=== PATIENT | female | born 1955 | race Caucasian/White ===

== ENCOUNTER 2016-09-07 18:35 | Observation (INO) | payer BC ==
[~2016-09-07] VITALS: Ht 165.1 cm; Wt 65.4 kg
[2016-09-07] VITALS (8 sets, daily range): BP systolic 70–102; BP diastolic 43–51; PULSE 75–90; RESP 17–20; TEMP 97.9–98.6; O2SAT 95–98
[~2016-09-07 18:35] MED LIST: DOXY100T PO; LORA10TA7 PO; LOTR15T TOP; PRED20 PO; RANI150 PO; SULF1TAB47 PO
[2016-09-07] MEDS ORDERED: SODIUM CHLORIDE 0.9% FLUSH 5 ML FLUSH IVF PRN (19:00)
[2016-09-07] MEDS ORDERED: SODIUM CHLOR 0.9% 1000 ML INJ 1,000 ML IV SCH (19:00)
--- NOTE | 2016-09-07 19:22 | PD ---
HPI Chief Complaint: Cold / Flu Symptoms Time Seen by Provider: 18:47 Travel History International Travel<30 days: No Contact w/Intl Traveler<30days: No Traveled to known affect area: No History of Present Illness HPI Patient's 7-year-old female presents emergency department for evaluation of nausea body aches and fever for the past 5 days. Patient states she went to an urgent care clinic and was told that she had the flu. She was prescribed Zofran. No further testing was indicated that time. Patient was notably hypotensive not in triage was placed in emergency department. She denied any dizziness or feeling like she was going to pass out. States the fevers but as high as 104. She denies any abdominal pain chest pain. She does endorse a dry cough which has not been productive any sputum. States the symptoms are not happened to her in the past. Denies history of medical problems. States symptoms him and gradually worsening. PFSH Past Medical History Diminished Hearing: No ?: Not Menopausal: Yes Past Surgical History Other Surgery: Yes (LEFT BREAST CYST REMOVED) Social History Alcohol Use: No Tobacco Use: No Substance Use: No Allergies-Medications (Allergen,Severity, Reaction): Coded Allergies: No Known Allergies (Verified , 09/07/16) Reported Meds & Prescriptions Reported Meds & Active Scripts Active Review of Systems Except as stated in HPI: all other systems reviewed are Neg Physical Exam Narrative GENERAL: [Well-developed well-nourished in no obvious distress. SKIN: Warm and dry. Decreased skin turgor HEAD: Atraumatic. Normocephalic. EYES: Pupils equal and round. No scleral icterus. No injection or drainage. ENT: No nasal bleeding or discharge. Mucous membranes pink and dry NECK: Trachea midline. No JVD. CARDIOVASCULAR: Regular rate and rhythm. No murmur appreciated. RESPIRATORY: No accessory muscle use. Clear to auscultation. Breath sounds equal bilaterally. GASTROINTESTINAL: Abdomen soft, non-tender, nondistended. Hepatic and splenic margins not palpable. MUSCULOSKELETAL: No obvious deformities. No clubbing. No cyanosis. No edema. NEUROLOGICAL: Awake and alert. No obvious cranial nerve deficits. Motor grossly within normal limits. Normal speech. PSYCHIATRIC: Appropriate mood and affect; insight and judgment normal. Data Data Last Documented VS Vital Signs Date Time Temp Pulse Resp B/P Pulse Ox O2 Delivery O2 Flow Rate FiO2 09/07/16 22:40 18 98 Room Air 09/07/16 21:50 78 81/50 09/07/16 19:02 97.9 Orders Complete Blood Count With Diff (09/07/16 19:00) Comprehensive Metabolic Panel (09/07/16 19:00) Lipase (09/07/16 19:00) Lactic Acid (09/07/16 19:00) Urinalysis - C+S If Indicated (09/07/16 19:00) Iv Access Insert/Monitor (09/07/16 19:00) Ecg Monitoring (09/07/16 19:00) Oximetry (09/07/16 19:00) Sodium Chlor 0.9% 1000 Ml Inj (Ns 1000 M (09/07/16 19:00) Sodium Chloride 0.9% Flush (Ns Flush) (09/07/16 19:00) Electrocardiogram (09/07/16 19:00) Chest, Single Ap (09/07/16 ) Influenzae A/B Antigen (09/07/16 19:00) Sodium Chlor 0.9% 1000 Ml Inj (Ns 1000 M (09/07/16 20:00) Cath For Specimen (09/07/16 20:27) B-Type Natriuretic Peptide (09/07/16 20:28) Sodium Chlor 0.9% 1000 Ml Inj (Ns 1000 M (09/07/16 21:00) Troponin I (09/07/16 19:15) Ct Abd/Pel W Iv Contrast(Rout) (09/07/16 ) Potassium Chlor 20 Meq Premix (Kcl 20 Me (09/07/16 21:15) Urine Culture (09/07/16 20:56) Ampicillin-Sulbactam Inj (Unasyn Inj) (09/07/16 23:00) Blood Culture (09/07/16 22:53) Iohexol 350 Inj (Omnipaque 350 Inj) (09/07/16 23:04) Admit Order (Ed Use Only) (09/07/16 ) Labs Laboratory Tests Test 09/07/16 09/07/16 19:15 20:56 White Blood Count 10.6 TH/MM3 Red Blood Count 4.20 MIL/MM3 Hemoglobin 12.6 GM/DL Hematocrit 36.0 % Mean Corpuscular Volume 85.9 FL Mean Corpuscular Hemoglobin 29.9 PG Mean Corpuscular Hemoglobin 34.9 % Concent Red Cell Distribution Width 13.0 % Platelet Count 98 TH/MM3 Mean Platelet Volume 9.4 FL Neutrophils (%) (Auto) 85.3 % Lymphocytes (%) (Auto) 8.1 % Monocytes (%) (Auto) 5.4 % Eosinophils (%) (Auto) 0.6 % Basophils (%) (Auto) 0.6 % Neutrophils # (Auto) 8.9 TH/MM3 Lymphocytes # (Auto) 0.9 TH/MM3 Monocytes # (Auto) 0.6 TH/MM3 Eosinophils # (Auto) 0.1 TH/MM3 Basophils # (Auto) 0.1 TH/MM3 CBC Comment AUTO DIFF Differential Comment AUTO DIFF CONFIRMED Platelet Estimate LOW Platelet Morphology Comment NORMAL Sodium Level 136 MEQ/L Potassium Level 2.9 MEQ/L Chloride Level 100 MEQ/L Carbon Dioxide Level 24.5 MEQ/L Anion Gap 12 MEQ/L Blood Urea Nitrogen 24 MG/DL Creatinine 1.00 MG/DL Estimat Glomerular Filtration 57 ML/MIN Rate Random Glucose 116 MG/DL Lactic Acid Level 1.0 mmol/L Calcium Level 8.6 MG/DL Total Bilirubin 2.0 MG/DL Aspartate Amino Transf 38 U/L (AST/SGOT) Alanine Aminotransferase 92 U/L (ALT/SGPT) Alkaline Phosphatase 416 U/L Troponin I LESS THAN 0.02 NG/ML B-Type Natriuretic Peptide 116 PG/ML Total Protein 6.0 GM/DL Albumin 2.2 GM/DL Lipase 79 U/L Urine Collection Type CATH Urine Color YELLOW Urine Turbidity CLEAR Urine pH 6.0 Urine Specific [place] 1.010 Urine Protein TRACE mg/dL Urine Glucose (UA) NEG mg/dL Urine Ketones NEG mg/dL Urine Occult Blood LARGE Urine Nitrite NEG Urine Bilirubin SMALL Urine Leukocyte Esterase TRACE Urine RBC 10-14 /hpf Urine WBC 9-14 /hpf Urine WBC Clumps FEW Urine Squamous Epithelial 0-2 /hpf Cells Urine Amorphous Sediment Urine Bacteria FEW /hpf Urine Fine Granular Casts 0-2 /lpf Microscopic Urinalysis Comment CULTURE INDICATED MDM Medical Decision Making Medical Screen Exam Complete: Yes Emergency Medical Condition: Yes Interpretation(s) EKG shows normal sinus rhythm with normal axis and normal R-wave progression. No concerning ST-T changes. Intervals within normal limits. This normal EKG. Differential Diagnosis Influenza, hypotension, dehydration, urinary tract infection, pneumonia, electrolyte abnormality. Narrative Course Patient 61-year-old female presents mildly hypotensive with blood pressure in the 70 systolic range. She is tolerating this quite well is mentating appropriately and actually ambulated with his blood pressure. Her urine specimen was quite dark on arrival suggesting significant dehydration. She had decreased skin turgor as well as dry mucous membranes. She is given a total of 3 L normal saline by bolus. At her blood pressure increased to 95 systolic. Her lactic acid is 1. She does not meet any SIRS criteria. She does have a significant urinary tract infection was given Unasyn in the emergency department. Blood cultures were drawn. After fluid hydration patient remained stable in the emergency department. Her potassium was low and was being repleted. Kidney function is normal. The patient is starting to feel much better. Patient was discussed with Parth Balderas of the [facility] to for admission to . At this point she is stable to remain in [place] in [facility]. Diagnosis Primary Impression: Complicated urinary tract infection Additional Impressions: Severe dehydration Transient hypotension Admitting Information Admitting Physician Requests: Admit Condition: Stable Roc Deluca MD Sep 07, 2016 19:22
[2016-09-07 19:38] LABS: AUTOMATED NEUTROPHIL # 8.9 TH/MM3 (1.8-7.7); BASOPHIL # 0.1 TH/MM3 (0-0.2); BASOPHIL % 0.6 % (0.0-2.0); EOSINOPHIL # 0.1 TH/MM3 (0-0.4); EOSINOPHIL % 0.6 % (0.0-4.0); LYMPH % 8.1 % (9.0-44.0); LYMPHOCYTE # 0.9 TH/MM3 (1.0-4.8); MEAN CELL VOLUME 85.9 FL (80.0-100.0); MEAN CORPUSCULAR HEMOGLOBIN 29.9 PG (27.0-34.0); MEAN CORPUSCULAR HGB CONC 34.9 % (32.0-36.0); MONO % 5.4 % (0.0-8.0); NEUT % 85.3 % (16.0-70.0); PLATELET COUNT 98 TH/MM3 (150-450); WHITE BLOOD COUNT 10.6 TH/MM3 (4.0-11.0)
[2016-09-07] MEDS ORDERED: SODIUM CHLOR 0.9% 1000 ML INJ 1,000 ML IV ONE ×2 (20:00→21:00)
--- NOTE | 2016-09-07 20:03 | RADHPO ---
EXAM DATE/TIME: 09/07/2016 19:54 [facility] COMPARISON: No previous studies available for comparison. INDICATIONS : Fever, MEDICAL HISTORY : None. SURGICAL HISTORY : None. ENCOUNTER: Initial ACUITY: 2 days PAIN SCORE: 5/10 LOCATION: Bilateral upper chest FINDINGS: A single view of the chest demonstrates the lungs to be symmetrically aerated without evidence of mas s, infiltrate or effusion. There appears to be chronic as changes bilaterally. The heart size is mil dly enlarged.. Osseous structures are intact. CONCLUSION: 1. Chronic interstitial changes bilaterally. 2. No focal pulmonary infiltrates are demonstrated. 3. Mild compensated cardiomegaly. Christopher Luna MD on September 07, 2016 at 20:01 Board Certified Radiologist. This report was verified electronically.
[2016-09-07 20:07] LABS: HEMO FLAGS AUTO DIFF
[2016-09-07 20:36] LABS: PLATELET ESTIMATE SMEAR LOW (NORMAL); PLATELET MORPHOLOGY NORMAL (NORMAL); SCAN/DIFF AUTO DIFF CONFIRMED
[2016-09-07 20:58] LABS: ALKALINE PHOSPHATASE 416 U/L (45-117); ALT (GPT) 92 U/L (10-53); ANION GAP 12 MEQ/L (5-15); AST (GOT) 38 U/L (15-37); BICARBONATE 24.5 MEQ/L (21.0-32.0); BLOOD UREA NITROGEN 24 MG/DL (7-18); CHLORIDE 100 MEQ/L (98-107); GLOMERULAR FILTRATION RATE 57 ML/MIN (>89); SODIUM (NA) 136 MEQ/L (136-145)
[2016-09-07 21:00] LABS: POTASSIUM 2.9 MEQ/L (3.5-5.1)
[2016-09-07 21:15] LABS: BLOOD, URINE LARGE (NEG); GLUCOSE,URINE NEG (NEG); KETONE, URINE NEG (NEG); NITRITE,URINE NEG (NEG)
[2016-09-07] MEDS ORDERED: POTASSIUM CHLOR 20 MEQ PREMIX 100 ML IV ONE (21:15)
[2016-09-07 21:24] LABS: METHOD OF COLLECTION CATH; URINE COLOR YELLOW (YELLW/STRAW)
[2016-09-07 21:27] LABS: BACTERIA, URINE FEW /hpf; COMMENT (UR) CULTURE INDICATED; CULTURE IF INDICATED CULTURE INDICATED; SQUAMOUS EPITHELIAL CELL URINE 0-2 /hpf (0-5)
--- NOTE | 2016-09-07 21:46 | RADHPO ---
EXAM DATE/TIME: 09/07/2016 21:17 [facility] COMPARISON: No previous studies available for comparison. INDICATIONS : Abdoemn pain, vomiting. IV CONTRAST: 75 cc Omnipaque 350 (iohexol) IV ORAL CONTRAST: No oral contrast ingested. RADIATION DOSE: 6.39 CTDIvol (mGy) MEDICAL HISTORY : Asthma SURGICAL HISTORY : None. ENCOUNTER: Initial ACUITY: 1 day PAIN SCALE: 5/10 LOCATION: Abdomen TECHNIQUE: Volumetric scanning of the abdomen and pelvis was performed. Using automated exposure control and ad justment of the mA and/or kV according to patient size, radiation dose was kept as low as reasonably achievable to obtain optimal diagnostic quality images. FINDINGS: LOWER LUNGS: Bibasilar atelectasis. LIVER: Homogeneous density without lesion. There is no dilation of the biliary tree. No calcified gallston es. SPLEEN: Normal size without lesion. PANCREAS: Within normal limits. KIDNEYS: Normal in size and shape. There is no mass, stone or hydronephrosis. There is a 1.5 cm cyst upper po le right kidney. ADRENAL GLANDS: Within normal limits. VASCULAR: There is no aortic aneurysm. BOWEL/MESENTERY: The stomach, small bowel, and colon demonstrate no acute abnormality. There is no free intraperitone al air or fluid. The appendix is unremarkable. No inflammatory changes. There is stool throughout the colon. ABDOMINAL WALL: Within normal limits. RETROPERITONEUM: There is no lymphadenopathy. BLADDER: No wall thickening or mass. REPRODUCTIVE: Within normal limits. INGUINAL: There is no lymphadenopathy or hernia. MUSCULOSKELETAL: Within normal limits for patient age. CONCLUSION: 1. 1.5 cm right renal cyst. 2. Bibasilar atelectasis. 3. Otherwise, unremarkable exam. Christopher Luna MD on September 07, 2016 at 21:42 Board Certified Radiologist. This report was verified electronically.
[2016-09-07] MEDS ORDERED: AMPICILLIN-SULBACTAM INJ 3 GM in SODIUM CHLORIDE 0.9% INJ 100 ML IV ONE (23:00)
[2016-09-07] MEDS ORDERED: IOHEXOL 350 MG/ML 10 ML VIAL (for RAD DIAG) IV ONE (23:04)
[2016-09-07] MEDS ORDERED: ACETAMINOPHEN 325 MG TAB PO ONE (23:45)
[2016-09-08] VITALS (58 sets, daily range): BP systolic 69–95; BP diastolic 44–59; PULSE 71–102; RESP 12–30; TEMP 98–99.6; O2SAT 92–100
[2016-09-08] MEDS ORDERED: POTASSIUM CHLORIDE INJ 0.02 MEQ in SODIUM CHLOR 0.9% 1000 ML INJ 1 ML IV SCH (00:06)
[2016-09-08] MEDS ORDERED: BISACODYL 10 MG SUPP PR PRN (00:15)
[2016-09-08] MEDS ORDERED: ACETAMINOPHEN 325 MG TAB PO PRN (00:15)
[2016-09-08] MEDS ORDERED: SODIUM CHLORIDE 0.9% FLUSH 5 ML FLUSH FLUSH PRN (00:15)
[2016-09-08] MEDS ORDERED: SENNOSIDES 8.6 MG TAB PO PRN (00:15)
[2016-09-08] MEDS ORDERED: ONDANSETRON HCL 4 MG/2 ML VIAL IVP PRN (00:15)
[2016-09-08] MEDS ORDERED: NALOXONE HCL 0.4 MG/ML AMP IV PRN (00:15)
[2016-09-08] MEDS ORDERED: NS + KCL 20 MEQ INJ 1,000 ML IV SCH (01:00)
[2016-09-08] MEDS ORDERED: MISCELLANEOUS NURSING INFORMATION XX SCH (01:45)
[2016-09-08] MEDS ORDERED: CHLORHEXIDINE GLUCONATE 2 % 1 PACK (2 CLOTHS) TOP PRN (01:45)
[2016-09-08] MEDS ORDERED: ONDANSETRON HCL 4 MG/2 ML VIAL IV PRN (01:45)
[2016-09-08] MEDS ORDERED: RESP: ALBUTEROL 2.5 MG/3 ML NEB (PRN) INH (01:45)
[2016-09-08] MEDS ORDERED: HEPARIN SODIUM - SQ 10,000 UNITS/ML VIAL SQ SCH (02:00)
[2016-09-08 02:48] LABS: BICARBONATE 21.2 MEQ/L (21.0-32.0); MAGNESIUM 2.1 MG/DL (1.5-2.5); POTASSIUM 3.1 MEQ/L (3.5-5.1)
[2016-09-08] MEDS: NS + KCL 20 MEQ INJ 1,000 ML IV SCH ×3 (02:53→21:53)
[2016-09-08] MEDS ORDERED: ENOXAPARIN SODIUM 40 MG/0.4 ML SYRINGE SQ SCH (03:00)
[2016-09-08 03:07] LABS: CREATINE KINASE 16 U/L (26-192)
[2016-09-08] MEDS: CHLORHEXIDINE GLUCONATE 2 % 1 PACK (2 CLOTHS) TOP SCH (04:00)
[2016-09-08] MEDS: RESP: ALBUTEROL 2.5 MG/IPRATROPIUM 0.5 MG NEB (SCH) INH ×4 (04:23→21:33)
[2016-09-08] MEDS ORDERED: POTASSIUM CHLOR 20 MEQ PREMIX 100 ML IV PRN (06:45)
[2016-09-08] MEDS ORDERED: MAGNESIUM OXIDE 400 MG TAB PO PRN (06:45)
[2016-09-08] MEDS ORDERED: MAGNESIUM SULFATE INJ 4 GM in SODIUM CHLORIDE 0.9% INJ 92 ML IV PRN (06:45)
[2016-09-08] MEDS ORDERED: POTASSIUM PHOSPHATE MONOBASIC 500 MG TAB PO/TUBE PRN (06:45)
[2016-09-08] MEDS ORDERED: POTASSIUM CHLOR 40 MEQ PREMIX 100 ML IV PRN ×2 (06:45)
[2016-09-08] MEDS ORDERED: MAGNESIUM SULFATE INJ 2 GM in SODIUM CHLORIDE 0.9% INJ 96 ML IV PRN (06:45)
[2016-09-08] MEDS ORDERED: POTASSIUM PHOSPHATE MONOBASIC 500 MG TAB PO PRN (06:45)
[2016-09-08] MEDS ORDERED: POTASSIUM PHOSPHATE INJ 30 MMOL in SODIUM CHLOR 0.9% 250 ML INJ 250 ML IV PRN (06:45)
[2016-09-08] MEDS ORDERED: SODIUM PHOSPHATE INJ 30 MMOL in SODIUM CHLOR 0.9% 250 ML INJ 240 ML IV PRN (06:45)
[2016-09-08] MEDS ORDERED: SODIUM CHLOR 0.9% 1000 ML INJ 1,000 ML IV ONE ×3 (06:45→15:00)
[2016-09-08] MEDS: PIPERACIL-TAZO 3.375 GM PREMIX 50 ML IV SCH ×3 (07:11→18:44)
[2016-09-08 07:40] LABS: AUTOMATED NEUTROPHIL # 8.2 TH/MM3 (1.8-7.7); BASOPHIL % 0.4 % (0.0-2.0); EOSINOPHIL % 0.3 % (0.0-4.0); HEMATOCRIT 32.3 % (35.0-46.0); HEMO FLAGS AUTO DIFF; LYMPH % 10.7 % (9.0-44.0); LYMPHOCYTE # 1.1 TH/MM3 (1.0-4.8); MEAN CELL VOLUME 88.3 FL (80.0-100.0); MEAN CORPUSCULAR HEMOGLOBIN 29.4 PG (27.0-34.0); MEAN CORPUSCULAR HGB CONC 33.3 % (32.0-36.0); MONO % 6.2 % (0.0-8.0); NEUT % 82.4 % (16.0-70.0); PLATELET COUNT 90 TH/MM3 (150-450); RED BLOOD COUNT 3.66 MIL/MM3 (4.00-5.30); WHITE BLOOD COUNT 9.9 TH/MM3 (4.0-11.0)
[2016-09-08 07:42] LABS: PROTHROMBIN TIME - PATIENT 11.2 SEC (9.8-11.6)
[2016-09-08 07:54] LABS: CREATINE KINASE 14 U/L (26-192)
[2016-09-08 07:58] LABS: PLATELET ESTIMATE SMEAR LOW (NORMAL); PLATELET MORPHOLOGY NORMAL (NORMAL); SCAN/DIFF AUTO DIFF CONFIRMED
--- NOTE | 2016-09-08 08:39 | MH ---
cc: CHARLEY ARMENDARIZ M.D. DATE OF ADMISSION 09/08/2016 DATE OF 1955 HISTORY OF PRESENT ILLNESS The patient is a 61-year-old female without significant past medical history who presented to [place] ED with a history of generalized body aches, fevers and dry cough. In addition, the patient had intractable nausea and vomiting and decreased p.o. intake for the past several days. She went to a walk-in clinic on Wednesday where she received a cough and nausea medications. She denies any chest pain, shortness of breath, abdominal pain. She was told that she had the flu at the urgent care clinic, however, she did not receive any Tamiflu and her nasal aspirate for influenza is negative in the ED. On arrival to the ER, the patient was hypotensive with a systolic blood pressure in the 70s to 80s. She is afebrile with a WBC of 10.6 on arrival. Chest x-ray on admission showed chronic interstitial changes bilaterally. No evidence of any focal pulmonary infiltrates. Her lactic acid measured at 1.0 last night and 0.3 early this morning. LABORATORY DATA Her laboratory data was significant for hypokalemia and hypophosphatemia with a potassium level of 3.1 and phosphorus 0.9 respectively. The patient also had CT abdomen and pelvis which showed a 1.5 cm right renal cyst and bibasilar atelectasis. She received approximately 4 liters of IV fluids in the ER. The patient is lying comfortably in bed in no acute respiratory distress. Her last blood pressure is 81/55 with a MAP of 64. PAST MEDICAL HISTORY The patient denies any history of: 1. Hypertension 2. Diabetes mellitus 3. Hyperlipidemia 4. Coronary artery disease PAST SURGICAL HISTORY Previous lump removed as a teenager. ALLERGIES NO KNOWN DRUG ALLERGIES. SOCIAL HISTORY Nonsmoker, nondrinker. FAMILY HISTORY Uncle with [place]. MEDICATIONS AT HOME Advil p.r.n. REVIEW OF SYSTEMS As per HPI, otherwise review of systems are unremarkable. PHYSICAL EXAM A 61-year-old female lying in bed in no acute distress. VITAL SIGNS: Afebrile with temperature of 98.1, pulse of 97, blood pressure 81/55, MAP of 64, saturation 100%. HEENT: Atraumatic, normocephalic. Pupil equal, round and active to light and accommodation. Extraocular muscles intact. Conjunctivae pink. Nonicteric sclera. Oral mucosa within normal. Dry mucous membranes noted. NECK: Supple. No JVD, adenopathy or thyromegaly. Trachea midline. CARDIOVASCULAR: Regular rate and rhythm. Normal S1-S2. No murmurs, rubs or gallops noted. PULMONARY: Bilateral equal air entry. No crackles or wheezing. ABDOMEN: Soft, nontender, no distension. Positive bowel sounds. EXTREMITIES: No cyanosis, clubbing or edema. NEUROLOGIC: No focal sensory deficit. LABORATORY DATA Sodium 142, potassium 3.1, chloride 109, CO2 21, BUN of 17 creatinine 0.71, glucose of 107, lactic acid 0.3, phosphorous 0.9, calcium 7.5, troponin less than 0.02, BNP 116, random cortisol level 26. WBC 10.6, hemoglobin 12.6, hematocrit 36, platelet count 98. RADIOGRAPHIC STUDIES Chest x-ray showed chronic interstitial changes bilaterally. No focal pulmonary infiltrates. CT abdomen and pelvis showed a 1.5 cm right renal cyst and bibasilar atelectasis. IMPRESSION 1. Hypotension 2. Dehydration 3. Intractable nausea and vomiting 4. Urinary tract infection 5. Hypokalemia and hypophosphatemia 6. Thrombocytopenia RECOMMENDATIONS 1. Continue with oxygen and maintain sats above 92%. 2. Bronchodilators in the form of DuoNeb q6-hour 3. Monitor heart rate and blood pressure closely and maintain MAP greater than 65 mmHg. 4. Lactic acid level measured at 0.3. 5. Continue with IV hydration. She was given approximately four liters of IV fluids in the ER. We will give an additional normal saline one liter bolus and maintain on maintenance fluids NS plus 20 of KCl at 100 mL an hour. 6. Monitor renal function I's and O's and electrolyte replacement per protocol. 7. Start clear liquid diet and advance as tolerated. 8. Continue with Protonix or continue with Pepcid 10 mg b.i.d. 9. Continue with Zosyn for a UTI and monitor for signs of infections which include fever and WBC. 10. Follow up on blood and urine cultures. 11. Her nasal aspirate for influenza is negative. 12. Monitor CBC and check coagulation profile. 13. Sliding scale insulin if needed for glycemic control. 14. GI and DVT prophylaxis. The patient is on Pepcid and Lovenox 40 mg subcu daily respectively. 15. Further recommendations will be based on the hospital course. Level 4, thank you. MD TAE Small/GEENA /6:37 AM /8:18 AM
[2016-09-08] MEDS: FAMOTIDINE 20 MG TAB PO SCH ×2 (09:00→20:56)
[2016-09-08] MEDS: PANTOPRAZOLE SODIUM 40 MG VIAL IV SCH (09:22)
[2016-09-08] MEDS: SODIUM CHLORIDE 0.9% FLUSH 5 ML FLUSH FLUSH SCH ×2 (09:23→23:27)
--- NOTE | 2016-09-08 10:09 | EKG ---
Date Performed: 09/07/2016 Time Performed: 19:15:34 PTAGE: 61 years EKG: Sinus rhythm Possible left atrial abnormality Incomplete RBBB Borderline ECG NO PREVIOUS TRACING DOCTOR: William Pena Interpretating Date/Time 09/08/2016 10:06:49
--- NOTE | 2016-09-08 10:18 | RADHPO ---
EXAM DATE/TIME: 09/08/2016 08:18 [facility] COMPARISON: No previous studies available for comparison. INDICATIONS: Increased lab values. MEDICAL HISTORY: Gastroesophageal reflux disease. Syncope. UTI. SURGICAL HISTORY: Left breast cyst removed. ENCOUNTER: Initial ACUITY: 1 day PAIN SCORE: 0/10 LOCATION: Bilateral upper quadrant MEASUREMENTS: LIVER: 17.7 cm length COMMON DUCT: 4 mm RIGHT KIDNEY: 13.2 x 6.3 x 6.2 cm SPLEEN: 16.1 cm length FINDINGS: The liver is mildly enlarged. No focal hepatic mass is noted. There is hepatopetal flow within the portal vein. No biliary ductal dilatation is noted. The wall of the gallbladder is mildly thickened . There are at least two echogenic foci within the gallbladder consistent with probable polyps. If there is clinical concern for acute cholecystitis a hepatobiliary scan may be helpful to rule out cys tic duct obstruction. No pericholecystic fluid or sonographic Peters's sign is noted. The head and body of the pancreas is unremarkable. The tail of the pancreas is obscured by overlying bowel gas. There is a simple cyst within the upper pole of the right kidney measuring 1.8 x 1.9 x 1.9 cm. There is no hydronephrosis or solid renal mass on the right. The spleen is enlarged. There is a probable accessory spleen measuring 1.7 cm. Bilateral pleural effusions are noted. CONCLUSION: 1. Hepatosplenomegaly. 2. Thick-walled gallbladder containing small polyps. If there is clinical concern for acute cholecys titis a hepatobiliary scan may be helpful to confirm cystic duct obstruction. 3. Upper pole right renal cyst measuring 1.9 cm. 4. Small bilateral pleural effusions. Roc Miramontes MD on September 08, 2016 at 9:42 Board Certified Radiologist. This report was verified electronically.
--- NOTE | 2016-09-08 11:18 | EKG ---
Date Performed: 09/08/2016 Time Performed: 00:53:34 PTAGE: 61 years EKG: Sinus rhythm with PVC(s). Incomplete RBBB Poor R wave progression - probable normal variant Anteroseptal T wave c hanges are nonspecific Borderline ECG PREVIOUS TRACING : 09/07/2016 19.15 DOCTOR: William Pena Interpretating Date/Time 09/08/2016 11:16:22
[2016-09-08 12:42] LABS: POTASSIUM 3.1 MEQ/L (3.5-5.1)
[2016-09-08 12:59] LABS: CREATINE KINASE 12 U/L (26-192)
[2016-09-08] MEDS: ACETAMINOPHEN 325 MG TAB PO PRN ×2 (15:24→19:48)
[2016-09-08] MEDS: POTASSIUM CHLOR 20 MEQ PREMIX 100 ML IV PRN ×2 (16:53→20:58)
[2016-09-08] MEDS ORDERED: ALBUMIN HUMAN 5% 25 GM/500 ML BOTTLE IV ONE (21:45)
[2016-09-09] VITALS (46 sets, daily range): BP systolic 80–108; BP diastolic 24–60; PULSE 70–108; RESP 20–31; TEMP 98.5–100.5; O2SAT 90–98
[2016-09-09] MEDS: PIPERACIL-TAZO 3.375 GM PREMIX 50 ML IV SCH ×5 (00:22→23:11)
[2016-09-09] MEDS: ACETAMINOPHEN 325 MG TAB PO PRN (00:59)
[2016-09-09] MEDS ORDERED: IBUPROFEN 400 MG TAB PO PRN (01:00)
[2016-09-09] MEDS ORDERED: diphenhydrAMINE HCL 50 MG CAP PO PRN (01:00)
[2016-09-09] MEDS: CHLORHEXIDINE GLUCONATE 2 % 1 PACK (2 CLOTHS) TOP SCH (01:10)
--- NOTE | 2016-09-09 02:38 | RADHPO ---
EXAM DATE/TIME: 09/09/2016 02:25 [facility] COMPARISON: CHEST SINGLE AP, September 07, 2016, 19:54. INDICATIONS : Short of breath. MEDICAL HISTORY : Gastroesophageal reflux disease. SURGICAL HISTORY : Left breast cyst removed. ENCOUNTER: Subsequent ACUITY: 3 days PAIN SCORE: Non-responsive. LOCATION: Bilateral chest FINDINGS: There is cardiomegaly, interstitial prominence and patchy airspace disease at the lung bases greatest in the left lower lobe. No effusions. CONCLUSION: Increasing interstitial and nodular infiltrates. Jam Fischer MD on September 09, 2016 at 2:35 Board Certified Radiologist. This report was verified electronically.
[2016-09-09 04:35] LABS: BASOPHIL % 0.3 % (0.0-2.0); EOSINOPHIL # 0.1 TH/MM3 (0-0.4); EOSINOPHIL % 0.9 % (0.0-4.0); HEMATOCRIT 28.6 % (35.0-46.0); LYMPH % 13.1 % (9.0-44.0); LYMPHOCYTE # 1.5 TH/MM3 (1.0-4.8); MEAN CELL VOLUME 87.3 FL (80.0-100.0); MEAN CORPUSCULAR HEMOGLOBIN 29.9 PG (27.0-34.0); MEAN CORPUSCULAR HGB CONC 34.3 % (32.0-36.0); MONO % 7.6 % (0.0-8.0); NEUT % 78.1 % (16.0-70.0); PLATELET COUNT 109 TH/MM3 (150-450); RED BLOOD COUNT 3.27 MIL/MM3 (4.00-5.30); RED CELL DISTRIBUTION WIDTH 13.9 % (11.6-17.2); WHITE BLOOD COUNT 11.5 TH/MM3 (4.0-11.0)
[2016-09-09] MEDS: RESP: ALBUTEROL 2.5 MG/IPRATROPIUM 0.5 MG NEB (SCH) INH ×4 (04:45→21:09)
[2016-09-09 05:07] LABS: HEMO FLAGS AUTO DIFF
[2016-09-09 05:10] LABS: CHLORIDE 113 MEQ/L (98-107); POTASSIUM 3.5 MEQ/L (3.5-5.1); SODIUM (NA) 144 MEQ/L (136-145)
[2016-09-09 05:14] LABS: ANION GAP 11 MEQ/L (5-15); BICARBONATE 19.9 MEQ/L (21.0-32.0); BLOOD UREA NITROGEN 8 MG/DL (7-18)
[2016-09-09 05:17] LABS: ALT (GPT) 42 U/L (10-53)
[2016-09-09 05:18] LABS: AST (GOT) 17 U/L (15-37); GLOMERULAR FILTRATION RATE 126 ML/MIN (>89)
[2016-09-09 05:20] LABS: ALKALINE PHOSPHATASE 304 U/L (45-117)
[2016-09-09] MEDS: ENOXAPARIN SODIUM 40 MG/0.4 ML SYRINGE SQ SCH (05:26)
[2016-09-09 06:29] LABS: DOHLE BODIES PRESENT (NONE SEEN); PLATELET ESTIMATE SMEAR LOW (NORMAL); PLATELET MORPHOLOGY NORMAL (NORMAL); SCAN/DIFF AUTO DIFF CONFIRMED; TOXIC GRANULATION 1+ (NORMAL)
--- NOTE | 2016-09-09 07:07 | HHI.CCPN ---
Subjective Remarks/Hospital Course The patient is a 61-year-old female without significant past medical history who presented to [place] ED with a history of generalized body aches, fevers and dry cough. In addition, the patient had intractable nausea and vomiting and decreased p.o. intake for the past several days. She went to a walk-in clinic on Wednesday where she received a cough and nausea medications. She denies any chest pain, shortness of breath, abdominal pain. She was told that she had the flu at the urgent care clinic, however, she did not receive any Tamiflu and her nasal aspirate for influenza is negative in the ED. On arrival to the ER, the patient was hypotensive with a systolic blood pressure in the 70s to 80s. She is afebrile with a WBC of 10.6 on arrival. Chest x-ray on admission showed chronic interstitial changes bilaterally. No evidence of any focal pulmonary infiltrates. Her lactic acid measured at 1.0 last night and 0.3 early this morning. 09/09 Patient is on 3L oxygen with good sats. Afebrile.CXR from this morning showed increase interstitial and nodular infiltrates. BP 95/54 with MAP: 67. Denies any SOB or abdominal pain. Objective Vital Signs Date Time Temp Pulse Resp B/P Pulse Ox O2 Delivery O2 Flow Rate FiO2 09/09/16 06:00 88 28 94/54 91 09/09/16 03:00 98.5 09/08/16 21:33 Nasal Cannula 1.00 09/08/16 01:00 21 Intake and Output 09/08/16 09/08/16 09/09/16 08:00 16:00 00:00 Intake Total 2050 ml 1490 ml Output Total 300 ml 1100 ml 700 ml Balance -300 ml 950 ml 790 ml Result Diagram: 09/09/16 0415 09/09/16 0415 Other Results Laboratory Tests Test 09/08/16 09/08/16 09/09/16 12:31 15:20 04:15 Potassium Level 3.1 MEQ/L 3.4 MEQ/L 3.5 MEQ/L Phosphorus Level 2.7 MG/DL 2.2 MG/DL Total Creatine Kinase 12 U/L Troponin I LESS THAN 0.02 NG/ML White Blood Count 11.5 TH/MM3 Red Blood Count 3.27 MIL/MM3 Hemoglobin 9.8 GM/DL Hematocrit 28.6 % Mean Corpuscular Volume 87.3 FL Mean Corpuscular Hemoglobin 29.9 PG Mean Corpuscular Hemoglobin 34.3 % Concent Red Cell Distribution Width 13.9 % Platelet Count 109 TH/MM3 Mean Platelet Volume 8.7 FL Neutrophils (%) (Auto) 78.1 % Lymphocytes (%) (Auto) 13.1 % Monocytes (%) (Auto) 7.6 % Eosinophils (%) (Auto) 0.9 % Basophils (%) (Auto) 0.3 % Neutrophils # (Auto) 9.0 TH/MM3 Lymphocytes # (Auto) 1.5 TH/MM3 Monocytes # (Auto) 0.9 TH/MM3 Eosinophils # (Auto) 0.1 TH/MM3 Basophils # (Auto) 0.0 TH/MM3 CBC Comment AUTO DIFF Differential Comment AUTO DIFF CONFIRMED Toxic Granulation 1+ Dohle Bodies PRESENT Platelet Estimate LOW Platelet Morphology Comment NORMAL Sodium Level 144 MEQ/L Chloride Level 113 MEQ/L Carbon Dioxide Level 19.9 MEQ/L Anion Gap 11 MEQ/L Blood Urea Nitrogen 8 MG/DL Creatinine 0.50 MG/DL Estimat Glomerular Filtration 126 ML/MIN Rate Random Glucose 99 MG/DL Calcium Level 7.6 MG/DL Magnesium Level 2.0 MG/DL Total Bilirubin 2.0 MG/DL Aspartate Amino Transf 17 U/L (AST/SGOT) Alanine Aminotransferase 42 U/L (ALT/SGPT) Alkaline Phosphatase 304 U/L Total Protein 5.0 GM/DL Albumin 2.0 GM/DL Imaging Last Impressions Chest X-Ray 09/09/16 0000 Signed Impressions: Service Date/Time: Friday, September 09, 2016 02:25 - CONCLUSION: Increasing interstitial and nodular infiltrates. Jam Fischer MD Liver Ultrasound 09/08/16 0159 Signed Impressions: Service Date/Time: Thursday, September 08, 2016 08:18 - CONCLUSION: 1. Hepatosplenomegaly. 2. Thick-walled gallbladder containing small polyps. If there is clinical concern for acute cholecystitis a hepatobiliary scan may be helpful to confirm cystic duct obstruction. 3. Upper pole right renal cyst measuring 1.9 cm. 4. Small bilateral pleural effusions. Roc Miramontes MD Abdomen/Pelvis CT 09/07/16 0000 Signed Impressions: Service Date/Time: Wednesday, September 07, 2016 21:17 - CONCLUSION: 1. 1.5 cm right renal cyst. 2. Bibasilar atelectasis. 3. Otherwise, unremarkable exam. Christopher Luna MD Objective Remarks GENERAL: Patient is lying in bed in NAD SKIN: Warm and dry. HEAD: Normocephalic. EYES: No scleral icterus. No injection or drainage. NECK: Supple, trachea midline. No JVD or lymphadenopathy. CARDIOVASCULAR: Regular rate and rhythm without murmurs, gallops, or rubs. RESPIRATORY: Breath sounds equal bilaterally. No accessory muscle use. GASTROINTESTINAL: Abdomen soft, non-tender, nondistended. MUSCULOSKELETAL: No cyanosis, or edema. Neuro: Awake and alert A/P Assessment and Plan 1. Resp Insuff 2 Probable pneumonia 3. Dehydration 4. Intractable nausea and vomiting 5. Urinary tract infection 6 Hypophosphatemia 7. Thrombocytopenia, Anemia Plan Neuro: Awake an alert Pulm: Continue with oxygen and maintain sats > 92%. Bronchodilators , check CT chest, pulm eval CV: Monitor HR and BP keep MAP> 65 mmHg. Lactic acid level 0.3. : Troponin negative x4 Echo showed EF 60%, no RWMA : Monitor renal function I's and O's and electrolyte replacement per protocol. Will need Phos replacement today. Diurese with Bumex 1mg x1. d/c IVF ( patient is 5L positive since admission) GI: Continue with Pepcid 10 mg b.i.d. On PO diet US Liver: Hepatosplenomegaly. Thick-walled gallbladder containing small polyps. Upper pole right renal cyst measuring 1.9 cm. ID: Continue with Zosyn add Vancomycin. Monitor for signs of infections ( Fever , WBC) Follow up on blood and urine cultures. nasal aspirate for influenza is negative. Check strep pneumonia and Legionella urinary Ag Heme: Monitor CBC, Heme eval Endo: Sliding scale insulin if needed for glycemic control. Cortisol level 26. GI and DVT prophylaxis. on Pepcid and SCD respectively. Lovenox d/c 2nd thrombocytopenia Will sign off and transfer care to [facility] Level 3 Ehsan Recinos MD Sep 09, 2016 07:07
[2016-09-09] MEDS ORDERED: BUMETANIDE INJ 1 MG/4 ML VIAL IV PUSH ONE (07:30)
[2016-09-09] MEDS: VANCOMYCIN INJ 1,000 MG in SODIUM CHLOR 0.9% 250 ML INJ 250 ML IV SCH ×2 (08:28→19:47)
[2016-09-09] MEDS: FAMOTIDINE 20 MG TAB PO SCH ×2 (08:29→23:11)
[2016-09-09] MEDS: SODIUM CHLORIDE 0.9% FLUSH 5 ML FLUSH FLUSH SCH ×2 (08:29→20:36)
[2016-09-09] MEDS: PANTOPRAZOLE SODIUM 40 MG VIAL IV SCH (08:29)
--- NOTE | 2016-09-09 09:39 | RADHPO ---
EXAM DATE/TIME: 09/09/2016 07:58 [facility] COMPARISON: CHEST SINGLE AP, September 09, 2016, 2:25. INDICATIONS : Abnormal chest xray. Short of breath. RADIATION DOSE: 6.43 CTDIvol (mGy) MEDICAL HISTORY : None SURGICAL HISTORY : Left breast cyst removed. ENCOUNTER: Initial ACUITY: 1 day PAIN SCALE: 0/10 LOCATION: chest TECHNIQUE: Volumetric scanning of the chest was performed. Using automated exposure control and adjustment of t he mA and/or kV according to patient size, radiation dose was kept as low as reasonably achievable to obtain optimal diagnostic quality images. FINDINGS: LUNGS: Diffusely increased interstitial markings, particularly in a perihilar distribution with associated r ight perihilar and bibasilar atelectatic changes. PLEURAE: Small to moderate bilateral pleural effusions. MEDIASTINUM: Heart size is prominent. There is some calcification of the mitral valve annulus. There is no medias tinal or hilar lymphadenopathy. AXILLAE: Within normal limits. No lymphadenopathy. MUSCULOSKELETAL: Within normal limits for patient age. MISCELLANEOUS: The visualized upper abdominal organs demonstrate no acute abnormality. CONCLUSION: Spectrum of findings characteristic of CHF with cardiomegaly, interstitial edema, bilateral pleu ral effusions and concomitant atelectatic changes. Nic Patel MD on September 09, 2016 at 9:34 Board Certified Radiologist. This report was verified electronically.
[2016-09-09] MEDS ORDERED: ACETAMINOPHEN 650 MG/20.3 ML UDC PO PRN (15:00)
--- NOTE | 2016-09-09 15:27 | EC ---
Study Study Date:09/09/2016 STUDY CONCLUSIONS SUMMARY - Left ventricle: The cavity size was normal. Wall thickness was normal. Systolic function was normal. The estimated ejection fraction was 60%. Wall motion was normal; there were no regional wall motion abnormalities. - Mitral valve: Calcified annulus. Moderately thickened leaflets, . Prolapse. Mild regurgitation. - Tricuspid valve: Mild regurgitation. - Pulmonary arteries: Systolic pressure was mildly increased. PA peak pressure: 42mm Hg (S). If LV function is below 40, please consider prescribing an ACEI or ARB or document rationale for non-use. PROCEDURE DATA STUDY STATUS: Elective. Procedure: Transthoracic echocardiography. Image quality was good. Scanning was performed from the parasternal, apical, and subcostal acoustic windows. Study completion: The patient tolerated the procedure well. Transthoracic echocardiography. M-mode, complete 2D, complete spectral Doppler, and color Doppler. Height: Height: 65in. Weight: Weight: 151.7lb. Body mass index: BMI: 25.3kg/m^2. Body surface area: BSA: 1.76m^2. Patient status: Inpatient. CARDIAC ANATOMY LEFT VENTRICLE: The cavity size was normal. Wall thickness was normal. Systolic function was normal. The estimated ejection fraction was 60%. Wall motion was normal; there were no regional wall motion abnormalities. AORTIC VALVE: Trileaflet; mildly thickened leaflets. Doppler: Transvalvular velocity was within the normal range. There was no stenosis. No regurgitation. Valve area: 2.51cm^2 (Vmax). Indexed valve area: 1.43cm^2/m^2 (Vmax). AORTA: Aortic root: The aortic root was normal in size. MITRAL VALVE: Calcified annulus. Moderately thickened leaflets, . Prolapse. Doppler: Transvalvular velocity was within the normal range. There was no evidence for stenosis. Mild regurgitation. Peak gradient: 4mm Hg (D). LEFT ATRIUM: The atrium was normal in size. RIGHT VENTRICLE: The cavity size was normal. Wall thickness was normal. PULMONIC VALVE: Doppler: Transvalvular velocity was within the normal range. There was no evidence for stenosis. No regurgitation. TRICUSPID VALVE: Structurally normal valve. Doppler: Transvalvular velocity was within the normal range. Mild regurgitation. PULMONARY ARTERY: The main pulmonary artery was normal-sized. Systolic pressure was mildly increased. RIGHT ATRIUM: The atrium was normal in size. PERICARDIUM: There was no pericardial effusion. SYSTEMIC VEINS: Inferior vena cava: The vessel was normal in size. Patient weight: 151.7lb _Ejection fraction:_ 65-75% _Fractional shortening:_ 32% up to 5Kg 5-11.5Kg 11.6-22.9Kg 23-45Kg 45-57Kg Aortic Root 7-13 <17 13-22 17-27 17-27 LA diam 6-13 <23 24-38 33-47 37-40 RVID 10-17 7-15 7-15 7-18 8-17 LVIDd 12-22 <32 24-38 33-47 37-40 LVPW 2-4 3-6 5-7 6-8 7-8 IVS 2-4 3-6 5-7 6-8 7-8 BASIC MEASUREMENTS ADULT NORMAL Left ventricle LV internal dimension, ED, chordal 44.2 mm 43-52 level, PLAX LV internal dimension, ES, chordal 31.8 mm 23-38 level, PLAX Fractional shortening, chordal level, *28 % >29 PLAX LV posterior wall thickness, ED 9.86 mm IVS/LVPW ratio, ED 1 <1.3 Ventricular septum Septal thickness, ED 9.87 mm Aortic valve Leaflet separation 19 mm 15-26 BASIC MEASUREMENTS ADULT NORMAL Aortic valve Leaflet separation 19 mm 15-26 Aorta Root diameter, ED 31 mm 20-37 Left atrium Anterior-posterior dimension, ES 38 mm 19-40 Anterior-posterior dimension index, ES 2.16 cm/m^2 <2.2 LA/aortic root ratio 1.23 DOPPLER MEASUREMENTS ADULT NORMAL Main pulmonary artery Pressure, S *42 mm Hg =30 Pressure, ED 20 mm Hg Aortic valve Peak velocity, S 137 cm/s Valve area, Vmax 2.51 cm^2 Valve area index, Vmax 1.43 cm^2/m^2 Mitral valve Peak E-wave velocity 104 cm/s Peak A-wave velocity 101 cm/s Deceleration time 173 ms 150-230 Peak gradient, D 4 mm Hg Peak E/A ratio 1 Maximal regurgitant velocity 341 cm/s Tricuspid valve Regurgitant peak velocity 244 cm/s Peak RV-RA gradient, S 24 mm Hg Maximal regurgitant velocity 244 cm/s Systemic veins Estimated CVP 10 mm Hg Right ventricle RV pressure, S *42 mm Hg <30 Pulmonic valve Peak velocity, S 89.6 cm/s Regurgitant velocity, ED 155 cm/s LEGEND: Mean values are shown as u=mean value. Asterisk (*) estes values outside specified normal range. Prepared and signed by Evangelina Dyer [id number]
[2016-09-09 15:36] LABS: POTASSIUM 3.1 MEQ/L (3.5-5.1)
[2016-09-09 15:39] LABS: MAGNESIUM 1.8 MG/DL (1.5-2.5)
[2016-09-09] MEDS ORDERED: POTASSIUM CHLORIDE 20 MEQ CONTROLLED RELEASE TAB PO ONE (16:45)
[2016-09-09] MEDS ORDERED: RESP: ALBUTEROL 1.25 MG/3 ML NEB (PRN) NEB (18:00)
[2016-09-09 18:14] LABS: BLOOD GAS BASE EXCESS -1.4 mmol/L (-2-2); BLOOD GAS CARBOXYHEMOGLOBIN 1.7 % (0-4); BLOOD GAS HCO3 21 mmol/L (22-26); BLOOD GAS METHEMOGLOBIN 0.6 % (0-2); BLOOD GAS O2 HGB SATURATION 94 % (90-100); BLOOD GAS PCO2 28 mmHg (38-42); BLOOD GAS PO2 71 mmHg (61-120); BLOOD GAS TOTAL HGB 9.8 G/DL (12.0-16.0); CRITICAL VALUE NO; DRAW SITE RT RADIAL; FIO2 28 %; LITER FLOW 2 L/M; NUMBER OF ARTERIAL PUNCTURES 1; OXYGEN DEVICE NASAL CANNULA; STAT YES; ULNAR PULSE PRESENT
[2016-09-10] VITALS (12 sets, daily range): BP systolic 96–110; BP diastolic 48–62; PULSE 18–102; RESP 16–25; TEMP 97.3–98.9; O2SAT 91–95
[2016-09-10] MEDS: CHLORHEXIDINE GLUCONATE 2 % 1 PACK (2 CLOTHS) TOP SCH (04:00)
[2016-09-10] MEDS: RESP: ALBUTEROL 2.5 MG/IPRATROPIUM 0.5 MG NEB (SCH) INH ×4 (04:05→20:54)
[2016-09-10] MEDS: PIPERACIL-TAZO 3.375 GM PREMIX 50 ML IV SCH ×3 (05:21→17:34)
[2016-09-10] MEDS: ENOXAPARIN SODIUM 40 MG/0.4 ML SYRINGE SQ SCH (05:21)
[2016-09-10 06:01] LABS: BASOPHIL % 0.3 % (0.0-2.0); EOSINOPHIL # 0.1 TH/MM3 (0-0.4); EOSINOPHIL % 0.5 % (0.0-4.0); HEMATOCRIT 27.2 % (35.0-46.0); HEMO FLAGS DIFF FINAL; LYMPH % 12.5 % (9.0-44.0); LYMPHOCYTE # 1.8 TH/MM3 (1.0-4.8); MEAN CELL VOLUME 86.2 FL (80.0-100.0); MEAN CORPUSCULAR HEMOGLOBIN 30.2 PG (27.0-34.0); NEUT % 78.7 % (16.0-70.0); PLATELET COUNT 193 TH/MM3 (150-450); RED BLOOD COUNT 3.16 MIL/MM3 (4.00-5.30); RED CELL DISTRIBUTION WIDTH 14.1 % (11.6-17.2)
[2016-09-10 06:05] LABS: BICARBONATE 22.4 MEQ/L (21.0-32.0); MAGNESIUM 1.8 MG/DL (1.5-2.5); POTASSIUM 3.6 MEQ/L (3.5-5.1)
--- NOTE | 2016-09-10 06:12 | RADRPT ---
EXAM DATE/TIME: 09/10/2016 05:35 [facility] COMPARISON: CHEST SINGLE AP, September 09, 2016, 2:25. INDICATIONS : Shortness of breath, possible pulmonary disease. MEDICAL HISTORY : Gastroesophageal reflux disease. SURGICAL HISTORY : Left breast cyst removal. ENCOUNTER: Subsequent ACUITY: 4 - 6 days PAIN SCORE: 0/10 LOCATION: Bilateral chest FINDINGS: Alveolar and interstitial opacities are again seen with consolidation of left lower lobe increased fr om previous. Cardiomegaly. Osseous structures are intact. CONCLUSION: Increasing left lower lobe airspace disease. Jam Fischer MD on September 10, 2016 at 6:11 Board Certified Radiologist. This report was verified electronically.
[2016-09-10] MEDS ORDERED: CHLORHEXIDINE GLUCONATE 2 % 1 PACK (2 CLOTHS)(extra cloths) TOP PRN (06:15)
--- NOTE | 2016-09-10 06:48 | MB ---
cc: AWA RANGEL M.D. DATE OF CONSULTATION 09/09/2016 REASON FOR CONSULTATION Consult requested by [facility] line attendant Dr. Recinos for evaluation of thrombocytopenia. HISTORY OF PRESENT ILLNESS This is a 61-year-old very pleasant white female. She has no significant past medical history. She had developed fever with dry cough and generalized body ache for the last week or so. She went to the [facility] where she was given antibiotic. She could not get better and then she came to the emergency room yesterday. She is now admitted to the hospital to the Intensive Care Unit for sepsis. The patient has been getting antibiotics. Her CBC on admission was completely normal except that the platelet count was 98. CBC yesterday showed platelet count of 90 and then today the platelet count is 109. White count is 11.5, hemoglobin is 9.8. The differential count is a significant for neutropenia and toxic granulation and Dohle bodies. I have been asked to see the patient for thrombocytopenia. The patient denies any previous history of thrombocytopenia. She has been having flu-like symptoms for a week or so. She also has low-grade fever. She had nausea and vomiting which has now resolved. The rest of the review of systems is negative. PAST MEDICAL HISTORY None PAST SURGICAL HISTORY left breast cyst removed. ALLERGIES None. FAMILY HISTORY Noncontributory. MEDICATIONS Advil only prior to admission. SOCIAL HISTORY The patient does not smoke cigarettes, does not drink alcohol. PHYSICAL EXAMINATION GENERAL: This is a well-developed, well-nourished white female in no apparent distress. VITAL SIGNS: Temperature 98.7, heart rate is 74, blood pressure 93/52. HEENT: PERRLA, EOMI, anicteric. No oral lesions are noted. NECK: Supple. LYMPHATICS: There is no cervical, supraclavicular or axillary lymphadenopathy noted. LUNGS: Clear. No wheezing, rhonchi or rales. HEART: Regular rate and rhythm. ABDOMEN: Soft, nontender. No hepatosplenomegaly. EXTREMITIES: No pedal edema. NEUROLOGY: Awake, alert, oriented x 3. SKIN: No significant lesions are noted. ASSESSMENT 1. Sepsis syndrome. 2. Thrombocytopenia most likely due to sepsis or infection or DIC. PLAN I have reviewed her available records and I have discussed with the patient, and her sister regarding the thrombocytopenia. The patient denies any previous history of thrombocytopenia. The patient came in to the hospital with a febrile illness and she was found to be hypotensive. She is admitted to the Intensive Care Unit by the [facility] attendant. On admission her liver enzymes were elevated which is reflective of hypotensive liver dysfunction. Her liver enzymes today have improved except the bilirubin is still elevated at 2.0. The patient is on antibiotic vancomycin and Zosyn. She is also on Pepcid. I think the most likely cause of thrombocytopenia is sepsis infection and/or DIC. The patient is getting antibiotics but she remains hypotensive. Two days ago when she was admitted to the hospital her CBC was completely normal except that the platelet count was 98 and the differential count was significant for neutrophilia with absolute neutrophil count of 8900. CBC yesterday showed that the hemoglobin dropped to 10.8 and the platelet count dropped to 90. CBC today showed that the white count has gone up to 11.5, hemoglobin is going down to 9.8 and the platelet count went up to 109. The most significant finding on the differential count is that she has toxic granulation and Dohle bodies which are reflective of sepsis. Her absolute neutrophil count is still elevated at 9000. There are no peripheral blasts noted. Given the toxic granulation and Dohle bodies on the peripheral smear, this is most likely consistent with sepsis-induced condition and thrombocytopenia is most likely due to that. Her creatinine is normal. There is no evidence of TTP or HUS. I will order the DIC panel as well as anemia workup with B12, folate and iron studies. I will also get MINDY and rheumatoid factor for evaluation of thrombocytopenia. Recommend to monitor the CBC. The patient does not require any platelet transfusion or blood transfusion at this time. Recommendation is to continue to treat the underlying condition which is sepsis. Thank you for asking my opinion. MD SANDIE Reyna/JULIANA /5:30 AM /6:32 AM ERNST
[2016-09-10] MEDS: VANCOMYCIN INJ 1,000 MG in SODIUM CHLOR 0.9% 250 ML INJ 250 ML IV SCH ×2 (07:57→19:57)
[2016-09-10] MEDS: FAMOTIDINE 20 MG TAB PO SCH ×2 (07:57→19:56)
[2016-09-10] MEDS: PANTOPRAZOLE SODIUM 40 MG VIAL IV SCH (09:00)
[2016-09-10] MEDS: SODIUM CHLORIDE 0.9% FLUSH 5 ML FLUSH FLUSH SCH ×2 (09:00→19:57)
[2016-09-10 09:11] LABS: APTT (PATIENT) 25.7 SEC (24.3-30.1); INTERNATIONAL NORMALIZED RATIO 1.1 RATIO; PROTHROMBIN TIME - PATIENT 11.7 SEC (9.8-11.6)
[2016-09-10 09:58] LABS: FERRITIN 253 NG/ML (8-252); TRANSFERRIN IRON PROFILE 104 MG/DL (200-360)
[2016-09-10 10:25] LABS: RHEUMATOID FACTOR TRIGGER LESS THAN 10.0 IU/ML (0.0-14.9)
--- NOTE | 2016-09-10 11:34 | MB ---
cc: CHARLEY RECINOS M.D., JAWED DATE OF CONSULTATION 09/10/2016 DATE OF 1955 DATE OF ADMISSION 09/08/[address] Charley Recinos CONSULTING DOCTOR Dr. Ирина Arthur REASON FOR CONSULTATION Assist in medical management and follow the patient on the floor. HISTORY OF PRESENT ILLNESS The patient is a very pleasant 61-year-old female without any significant past medical history who was sick prior to admission to the ER. The patient has body aches with intractable nausea and some vomiting. The patient first went to the Urgent Care where she was told that she had the flu and she did not get better, so he came to the ER. In the ER, she had a low blood pressure for which the patient was admitted. Fluid boluses were given and the patient later on transferred from [place] to the main [facility] facility. The patient was kept on IV antibiotics for possible sepsis and also workup was started including blood culture which were negative so far and urine culture negative for 48 hours. She is negative for flu A and B. She had a chest CT done which shows a spectrum of findings characteristic of CHF with cardiomegaly, interstitial edema, bilateral pleural effusions concomitant with atelectatic changes. The patient had a 2-D echo done. The echocardiogram shows normal EF and without any significant valvular issues. The patient is now feeling better. She has no nausea or vomiting. As per patient, her usual blood pressure is in the 100s, between 100-105-108 systolic. She has no nausea or vomiting. She denies any headache or dizziness. She has no chest pain, diaphoresis or palpitations. She has no shortness of breath. She has improving enery. No body ache. No abdominal pain. No diarrhea. There are no genitourinary symptoms. She has a Ross catheter. PAST MEDICAL HISTORY She denies any significant past medical history. MEDICATIONS The patient is not taking any regular medications at home. PAST SURGICAL HISTORY Lump removed when she was a teenager. ALLERGIES NO KNOWN DRUG ALLERGIES. SOCIAL HISTORY The patient does not smoke, drink or do any drugs. FAMILY HISTORY One uncle of [place]. REVIEW OF SYSTEMS As described above in history of present illness otherwise negative for 10 systems. PHYSICAL EXAMINATION The patient is alert and oriented, well-built, well-nourished lying on bed without any apparent distress. VITALS: Shows the patient is afebrile, pulse is on the monitor 90 and regular, respiratory rate is 18, blood pressure on monitor systolic 100+. MAP is at present 73. HEENT: Head is atraumatic, normocephalic. Eyes, negative for conjunctival congestion or icterus. Mouth unremarkable. NECK: Supple. No increased JVD. Central trachea. RESPIRATORY: Chest has good air entry. No rales, rhonchi or wheezing noted. CARDIOVASCULAR: S1 and S2 audible. Unable to hear an S3 gallop. GI: Abdomen soft, nontender, no organomegaly. Positive bowel sounds. MUSCULOSKELETAL: Extremities have no cyanosis or pedal edema appreciated. C[employer]OMER SU[employer]: Grossly intact. SKIN: Warm and dry. PSYCH: Appropriate mood and affect. The patient has a Ross catheter. INVESTIGATIONS WBC 14, hemoglobin 9.5, hematocrit 27.2, platelet count is 193. BUN 5, creatinine 0.43, INR 40, TIBC 146, vitamin B12 greater than 2000, folate 20. PT/INR within normal limits. Fibrinogen within normal limits. UA shows urine small leukocyte esterase, trace RBC 10-14, WBCs 9-14 and few bacteria. ABG yesterday shows ABG pH of 7.50, CO2 of 28, O2 of 71 on two liters. Nasal screen MRSA was negative. Rheumatoid factor was negative. Blood culture x2 for two days negative. Urine culture for more than 48 hours, no growth. Nasal Respiratory negative for flu A and B. Chest x-ray shows increased left lower lobe airspace disease which was done today. CT Chest shows a spectrum of findings characteristic of CHF with cardiomegaly, interstitial edema, bilateral pleural effusion and concomitant atelectasis changes. Liver ultrasound was done which shows hepatosplenomegaly. A thick walled gallbladder containing a small polyp. Abdomen and pelvic CT was done which showed a 1.5 cm right renal cyst. Bibasilar atelectasis, otherwise unremarkable exam. Echocardiogram was done which showed an EF of 60% and wall thickness was normal. No regional wall motion abnormality. The patient has mild MR and mild TR. ASSESSMENT 1. Hypotension on admission improved 2. Dehydration on admission better. 3. Pneumonia/airspace disease left lower lobe 4. Status post intractable nausea and vomiting on admission. 5. Urinary tract infection, culture negative. 6. Electrolyte imbalance on admission. 7. Thrombocytopenia on admission. 8. Leukocytosis 9. Anemia of hydration with stable H&H. RECOMMENDATIONS 1. Continue antibiotics as ordered. 2. Monitor leukocytosis. 3. Pepcid for GI prophylaxis 4. Lovenox for DVT prophylaxis. 5. Discontinue Ross catheter 6. Out of bed, encourage ambulation. 7. Electrolyte replacement as needed basis. 8. Breathing treatment on p.r.n. basis. 9. Condition discussed with the patient in detail. 10. Discussed with newspaper manager, Dr. Recinos in detail. 11. Discussed with RN. 12. Condition is improving. Further recommendation to follow as per patient progress. The patient is stable enough to transfer to the floor. Ирина Arthur MD JP/GEENA /10:42 AM /11:08 AM
--- NOTE | 2016-09-10 12:50 | PD.ONC.PN ---
Subjective Subjective Remarks Afebrile overnight. Patient resting comfortably. She is trying to eat lunch but doesn't have much of an appetite. Denies pain. Objective Data Date Time Temp Pulse Resp B/P Pulse Ox O2 Delivery O2 Flow Rate FiO2 09/10/16 09:13 91 Nasal Cannula 4.00 09/10/16 08:00 98.4 77 20 106/58 95 09/10/16 08:00 77 09/10/16 06:00 66 09/10/16 04:00 98.6 74 25 99/51 93 09/10/16 04:00 74 09/10/16 02:07 98.8 80 16 105/55 94 09/10/16 02:00 69 09/10/16 01:00 80 20 97/48 94 09/10/16 00:00 82 09/10/16 00:00 98.4 78 22 96/54 95 09/09/16 23:09 84 24 98/54 95 09/09/16 22:39 80 20 94/47 92 09/09/16 22:09 76 25 93/46 96 09/09/16 22:00 75 09/09/16 21:39 80 28 94/48 90 09/09/16 21:09 70 27 93/42 93 09/09/16 21:08 93 Nasal Cannula 2.00 09/09/16 20:09 98.7 74 24 93/52 94 09/09/16 20:00 75 09/09/16 19:00 78 27 88/48 95 09/09/16 18:50 82 28 91/50 95 09/09/16 18:40 76 26 87/48 95 09/09/16 18:30 86 28 89/48 92 09/09/16 18:00 88 09/09/16 18:00 99.2 80 24 92/46 95 09/09/16 17:30 78 27 99/52 95 09/09/16 17:08 82 26 95/52 92 09/09/16 16:30 76 09/09/16 16:00 80 26 97/52 93 09/09/16 15:30 99.5 86 29 95/44 94 09/09/16 15:00 80 22 94/51 93 09/09/16 14:30 76 27 95/48 94 09/09/16 14:26 76 09/09/16 14:02 84 30 95/52 94 09/09/16 14:00 86 28 89/45 95 09/09/16 13:30 100.5 84 30 93/53 97 09/09/16 13:00 80 29 108/52 96 09/10/16 09/10/16 09/10/16 07:00 15:00 23:00 Intake Total 177 ml Output Total 850 ml Balance -673 ml Result Diagram: 09/10/16 0416 09/10/16 0416 Laboratory Results Laboratory Tests Test 09/09/16 09/09/16 09/10/16 09/10/16 15:17 18:05 02:00 04:16 Potassium Level 3.1 MEQ/L 3.6 MEQ/L Phosphorus Level 2.1 MG/DL 3.4 MG/DL Magnesium Level 1.8 MG/DL 1.8 MG/DL B-Type Natriuretic Peptide 476 PG/ML Blood Gas Puncture Site RT RADIAL Blood Gas Patient Temperature 37.0 Blood Gas HCO3 21 mmol/L Blood Gas Base Excess -1.4 mmol/L Blood Gas Oxygen Saturation 94 % Arterial Blood pH 7.50 Arterial Blood Partial 28 mmHg Pressure CO2 Arterial Blood Partial 71 mmHg Pressure O2 Arterial Blood Oxygen Content 13.0 Vol % Arterial Blood 1.7 % Carboxyhemoglobin Arterial Blood Methemoglobin 0.6 % Blood Gas Hemoglobin 9.8 G/DL Oxygen Delivery Device NASAL CANNULA Blood Gas Liter Flow 2 L/M Blood Gas Inspired Oxygen 28 % Nasal Screen MRSA (PCR) NEGATIVE White Blood Count 14.0 TH/MM3 Red Blood Count 3.16 MIL/MM3 Hemoglobin 9.5 GM/DL Hematocrit 27.2 % Mean Corpuscular Volume 86.2 FL Mean Corpuscular Hemoglobin 30.2 PG Mean Corpuscular Hemoglobin 35.0 % Concent Red Cell Distribution Width 14.1 % Platelet Count 193 TH/MM3 Mean Platelet Volume 9.3 FL Neutrophils (%) (Auto) 78.7 % Lymphocytes (%) (Auto) 12.5 % Monocytes (%) (Auto) 8.0 % Eosinophils (%) (Auto) 0.5 % Basophils (%) (Auto) 0.3 % Neutrophils # (Auto) 11.0 TH/MM3 Lymphocytes # (Auto) 1.8 TH/MM3 Monocytes # (Auto) 1.1 TH/MM3 Eosinophils # (Auto) 0.1 TH/MM3 Basophils # (Auto) 0.0 TH/MM3 CBC Comment DIFF FINAL Differential Comment Sodium Level 141 MEQ/L Chloride Level 107 MEQ/L Carbon Dioxide Level 22.4 MEQ/L Anion Gap 12 MEQ/L Blood Urea Nitrogen 5 MG/DL Creatinine 0.43 MG/DL Estimat Glomerular Filtration 150 ML/MIN Rate Random Glucose 100 MG/DL Calcium Level 7.9 MG/DL Test 09/10/16 08:37 Prothrombin Time 11.7 SEC Prothromb Time International 1.1 RATIO Ratio Activated Partial 25.7 SEC Thromboplast Time Fibrinogen 380 mg/dL Iron Level 40 MCG/DL Total Iron Binding Capacity 146 MCG/DL Percent Iron Saturation 27.5 % Ferritin 253 NG/ML Vitamin B12 Level GREATER THAN 2000 PG/ML Folate GREATER THAN 20.0 NG/ML Rheumatoid Factor Screen NEGATIVE Rheumatoid Factor Titer IU/ML Culture Results Microbiology Date/Time Procedure Status Source Growth 09/07/16 19:23 Influenza Types A,B Antigen (KIMBERLI) - Final Complete Nasal Aspirate NEGATIVE FOR FLU A AND B ANTIGEN.... 09/07/16 20:56 Urine Culture - Final Complete Urine Catheterized Urine NO GROWTH IN 48 HOURS. 09/07/16 23:19 Aerobic Blood Culture - Preliminary Resulted Blood Peripheral NO GROWTH IN 3 DAYS 09/07/16 23:19 Anaerobic Blood Culture - Preliminary Resulted Blood Peripheral NO GROWTH IN 3 DAYS 09/07/16 23:24 Aerobic Blood Culture - Preliminary Resulted Blood Peripheral NO GROWTH IN 3 DAYS 09/07/16 23:24 Anaerobic Blood Culture - Preliminary Resulted Blood Peripheral NO GROWTH IN 3 DAYS 09/09/16 10:45 Legionella Antigen - Final Complete Urine Catheterized Urine PRESUMPTIVE NEGATIVE FOR LEGIONELLA P... 09/09/16 10:45 Streptococcus pneumoniae Antigen (M - Final Complete Urine Catheterized Urine PRESUMPTIVE NEGATIVE FOR STREPTOCOCCU... 09/09/16 15:30 Gram Stain - Final Resulted Sputum Expectorated Sputum 09/09/16 15:30 Sputum Culture - Preliminary Resulted Sputum Expectorated Sputum HEAVY GROWTH NORMAL RESPIRATORY JUVENAL... Imaging Studies Last 24 hours Impressions Chest X-Ray 09/10/16 0600 Signed Impressions: Service Date/Time: August 05:35 - CONCLUSION: Increasing left lower lobe airspace disease. Jam Fischer MD Administered Medications Medications (Trade) Dose Ordered Sig/Kaitlin Route PRN Reason Start Time Stop Time Status Last Admin Dose Admin IV Flush (NS Flush) 2 ml BID FLUSH 09/08/16 09:00 09/09/16 08:29 Ondansetron HCl (Zofran Inj) 4 mg Q6H PRN IVP NAUSEA OR VOMITING 09/08/16 00:15 09/09/16 01:05 Famotidine (Pepcid) 10 mg BID PO 09/08/16 09:00 09/10/16 07:57 Pantoprazole Sodium 40 mg 40 mg DAILY IV 09/08/16 09:00 09/09/16 08:29 Piperacillin Sod/ Tazobactam Sod 50 ml @ 100 mls/hr Q6H IV 09/08/16 06:00 09/10/16 12:40 Potassium Chloride 100 ml @ 50 mls/hr Q2H PRN IV For Potassium 3.3 - 3.5 mEq/L 09/08/16 06:45 09/08/16 20:58 Potassium Phosphate/Sodium Chloride (Potassium Phosphate Inj/NS 250 ml Inj) 260 ml @ 42 mls/hr UNSCH PRN IV SEE LABEL COMMENTS 09/08/16 06:45 09/09/16 17:15 Diphenhydramine HCl (Benadryl) 50 mg HS PRN PO INSOMNIA 09/09/16 01:00 09/09/16 00:58 Acetaminophen (Tylenol) 650 mg Q4H PRN PO PAIN 1-10 AND/OR FEVER >101F 09/09/16 03:45 09/09/16 00:59 Enoxaparin Sodium 40 mg 40 mg Q24H SQ 09/09/16 06:00 09/10/16 05:21 Vancomycin HCl/ Sodium Chloride (Vancomycin Inj/ NS 250 ml Inj) 250 ml @ 250 mls/hr Q12H IV 09/09/16 08:00 09/10/16 07:57 Miscellaneous Information Patient in critical care unit? Ass... [id number] 09/10/16 06:15 09/10/16 06:15 Objective Remarks GENERAL: Middle aged female, sitting up in chair next to bed in [facility]. SKIN: Warm and dry. HEAD: Normocephalic. EYES: No injection or drainage. NECK: Supple, trachea midline. CARDIOVASCULAR: Regular rate and rhythm RESPIRATORY: Breath sounds equal bilaterally. No accessory muscle use. GASTROINTESTINAL: Abdomen soft, non-tender, nondistended. EXTREMITIES: No cyanosis NEUROLOGICAL: No obvious focal deficit. Awake, alert, and oriented x3. Assessment/Plan Problem List: (1) Thrombocytopenia Status: Acute Plan: 09/10: platelet count is WNL today. expect platelets to continue recovery as sepsis improves. --likely d/t sepsis/ DIC --+toxic granulation + Dohle bodies on peripheral smear --B12/folate WNL Assessment 61y/o female admitted with sepsis. Hematology consulted for thrombocytopenia. Attending Statement feels better. no fever still hypotensive. plat are now normal. continue a/b Elaine Thomas Sep 10, 2016 12:50 Roz Calix MD Sep 10, 2016 23:15
[2016-09-10] MEDS: ACETAMINOPHEN 325 MG TAB PO PRN (20:19)
--- NOTE | 2016-09-10 20:20 | MB ---
cc: RigoLEOMAXINE DATE OF CONSULTATION 09/09/16 REASON FOR CONSULTATION Pneumonia and respiratory distress. HISTORY OF PRESENT ILLNESS This is a 61-year-old white female who was initially admitted to the [facility] with fever, cough, generalized aches and extreme weakness. The patient was seen in the [facility]gent [facility] and was given an antibiotic, but then came to the emergency room and subsequently admitted. She was noted to be hypotensive and was septic and had to be brought to the intensive care unit and placed on oxygen, given IV antibiotics for broad-spectrum coverage and also was given IV fluids for hydration. Over the past two days, she has received more than four liters of fluids. Her white count was elevated, but her hemoglobin had dropped. The patient was febrile while she was in the hospital and was nauseated and had some vomiting, but that has improved. The chest x-ray showed minimal infiltrates of the bases. PAST MEDICAL HISTORY Breast cyst removal HABITS The patient is a nonsmoker. No significant alcohol FAMILY HISTORY Essentially noncontributory. MEDICATIONS Antibiotic coverage including vancomycin and Zosyn. REVIEW OF SYSTEMS The patient is very weak. She is unable to respond to too many questions. She complains of some epigastric distress and nausea. She has no leg swelling. No urinary symptoms. No blackout spells. She has some anxiety. PHYSICAL EXAMINATION GENERAL: This is an averagely built middle-aged lady who is pale and slightly lethargic VITAL SIGNS: Blood pressure was 95/60, pulse is 80, respirations 24, temperature 98.5 HEENT: Head normocephalic. Pupils are reactive. Sclerae clear. Tongue is dry. Throat has a few secretions. Nasal mucosa injected. NECK: Supple. No bruits or thyroid enlargement. CHEST: Equal movements with occasional crackles at the lung bases. No wheeze. CARDIAC: Heart sounds are regular S1-S2. No murmur. ABDOMEN: Soft without masses, no organomegaly or tenderness. EXTREMITIES: No edema or lesions. Reflexes are 1+ with no gross motor deficits. SKIN: No lesions are observed. IMPRESSION 1. Probable basilar pneumonia with hypoxemia. 2. Sepsis with shock. 3. Viral syndrome, resolving. 4. Thrombocytopenia. 5. Dehydration. PLAN The patient has been started on IV fluids. She also is on antibiotic coverage which we will continue which includes vancomycin 1 gram q. 12 and Zosyn 3.375 grams q. six. Cultures on blood, urine and sputum are pending. Repeat CBC chest x-ray to be done. The patient will be placed on two liters of oxygen, nebulized albuterol solution q.i.d. p.r.n. and further workup for sepsis is pending. Thank you, Dr. Recinos, for this consultation. MD CRISTÓBAL Damian/ /5:27 PM /8:06 PM
[2016-09-11] VITALS (9 sets, daily range): BP systolic 92–109; BP diastolic 52–64; PULSE 75–111; RESP 16–21; TEMP 97.2–98.3; O2SAT 92–98
[2016-09-11] MEDS: PIPERACIL-TAZO 3.375 GM PREMIX 50 ML IV SCH ×5 (02:06→23:19)
[2016-09-11] MEDS: RESP: ALBUTEROL 2.5 MG/IPRATROPIUM 0.5 MG NEB (SCH) INH ×4 (03:09→22:04)
[2016-09-11] MEDS: CHLORHEXIDINE GLUCONATE 2 % 1 PACK (2 CLOTHS)(taper/protocol) TOP SCH (04:00)
[2016-09-11] MEDS: ENOXAPARIN SODIUM 40 MG/0.4 ML SYRINGE SQ SCH (06:13)
[2016-09-11 07:04] LABS: HEMATOCRIT 26.7 % (35.0-46.0); MEAN CELL VOLUME 86.7 FL (80.0-100.0); MEAN CORPUSCULAR HGB CONC 34.6 % (32.0-36.0); PLATELET COUNT 280 TH/MM3 (150-450); RED BLOOD COUNT 3.08 MIL/MM3 (4.00-5.30); REVIEW FLAG FINAL
[2016-09-11] MEDS: FAMOTIDINE 20 MG TAB PO SCH ×2 (09:49→20:23)
[2016-09-11] MEDS: PANTOPRAZOLE SODIUM 40 MG VIAL IV SCH (09:49)
[2016-09-11] MEDS: SODIUM CHLORIDE 0.9% FLUSH 5 ML FLUSH FLUSH SCH ×2 (10:00→20:23)
[2016-09-11] MEDS: VANCOMYCIN INJ 1,000 MG in SODIUM CHLOR 0.9% 250 ML INJ 250 ML IV SCH ×2 (10:02→20:23)
--- NOTE | 2016-09-11 11:14 | HHI.PR ---
Subjective Remarks Patient is asleep feeling tired When taking a deep breathing feels some discomfort in left lower chest No particular chest pain No cough No nausea vomiting no diarrhea No other complaint Less appetite Review of system for 10 point system otherwise unremarkable Objective Objective Results - Vital Signs Date Time Temp Pulse Resp B/P Pulse Ox O2 Delivery O2 Flow Rate FiO2 09/11/16 09:15 95 Nasal Cannula 2.00 09/11/16 08:00 97.4 80 21 109/64 95 09/11/16 04:00 97.6 101 18 101/55 92 09/11/16 03:15 98 Nasal Cannula 2.00 09/11/16 00:00 98.3 111 16 98/62 92 09/10/16 21:50 97.3 102 16 105/56 93 09/10/16 20:00 98.9 74 20 110/62 91 09/10/16 20:00 74 09/10/16 16:00 71 09/10/16 16:00 98.7 71 18 98/54 95 09/10/16 12:00 18 09/10/16 12:00 74 09/10/16 12:00 98.2 75 18 102/61 94 I/O 09/10/16 09/10/16 09/10/16 09/11/16 09/11/16 09/11/16 07:00 15:00 23:00 07:00 15:00 23:00 Intake Total 177 ml 723 ml 240 ml 200 ml Output Total 850 ml 800 ml 800 ml Balance -673 ml -77 ml -560 ml 200 ml Intake Oral 60 ml 360 ml 240 ml 200 ml IV Total 117 ml 363 ml Output Urine Total 850 ml 800 ml 800 ml # Voids 1 2 # Bowel Movements 0 0 Result Diagram: 09/11/16 0531 09/10/16 0416 Other Results Laboratory Tests Test 09/11/16 05:31 White Blood Count 14.0 Red Blood Count 3.08 Hemoglobin 9.3 Hematocrit 26.7 Mean Corpuscular Volume 86.7 Mean Corpuscular Hemoglobin 30.0 Mean Corpuscular Hemoglobin 34.6 Concent Red Cell Distribution Width 14.0 Platelet Count 280 Mean Platelet Volume 8.9 Date/Time Procedure Status Source Growth 09/09/16 15:30 Gram Stain - Final Resulted Sputum Expectorated Sputum 09/09/16 15:30 Sputum Culture - Preliminary Resulted Sputum Expectorated Sputum HEAVY GROWTH NORMAL RESPIRATORY JUVENAL... 09/09/16 10:45 Legionella Antigen - Final Complete Urine Catheterized Urine PRESUMPTIVE NEGATIVE FOR LEGIONELLA P... 09/09/16 10:45 Streptococcus pneumoniae Antigen (M - Final Complete Urine Catheterized Urine PRESUMPTIVE NEGATIVE FOR STREPTOCOCCU... 09/07/16 23:24 Aerobic Blood Culture - Preliminary Resulted Blood Peripheral NO GROWTH IN 3 DAYS 09/07/16 23:24 Anaerobic Blood Culture - Preliminary Resulted Blood Peripheral NO GROWTH IN 3 DAYS 09/07/16 20:56 Urine Culture - Final Complete Urine Catheterized Urine NO GROWTH IN 48 HOURS. 09/07/16 19:23 Influenza Types A,B Antigen (KIMBERLI) - Final Complete Nasal Aspirate NEGATIVE FOR FLU A AND B ANTIGEN.... Physical Exam Physical Exam The patient is alert and oriented, well-built, well-nourished lying on bed without any apparent distress. VITALS: Reviewed HEENT: Head is atraumatic, normocephalic. Eyes, negative for conjunctival congestion or icterus. Mouth unremarkable. NECK: Supple. No increased JVD. Central trachea. RESPIRATORY: Chest some decreased air entry bibasally. No rales, rhonchi or wheezing noted. CARDIOVASCULAR: S1 and S2 audible. Unable to hear an S3 gallop. GI: Abdomen soft, nontender, no organomegaly. Positive bowel sounds. MUSCULOSKELETAL: Extremities have no cyanosis or pedal edema appreciated. FIBERGLASS PRODUCT TESTER: Grossly intact. SKIN: Warm and dry. PSYCH: Appropriate mood and affect. The patient has a Ross catheter. A/P Assessment and Plan INVESTIGATIONS WBC 14, hemoglobin 9.5, hematocrit 27.2, platelet count is 193. BUN 5, creatinine 0.43, INR 40, TIBC 146, vitamin B12 greater than 2000, folate 20. PT/INR within normal limits. Fibrinogen within normal limits. UA shows urine small leukocyte esterase, trace RBC 10-14, WBCs 9-14 and few bacteria. ABG yesterday shows ABG pH of 7.50, CO2 of 28, O2 of 71 on two liters. Nasal screen MRSA was negative. Rheumatoid factor was negative. Blood culture x2 for two days negative. Urine culture for more than 48 hours, no growth. Nasal Respiratory negative for flu A and B. 1. Hypotension on admission improved 2. Dehydration on admission better. 3. Pneumonia/airspace disease left lower lobe 4. Status post intractable nausea and vomiting on admission. 5. Urinary tract infection, culture negative. 6. Electrolyte imbalance on admission. 7. Thrombocytopenia on admission. 8. Leukocytosis 9. Anemia of hydration with stable H&H. RECOMMENDATIONS 1. Continue antibiotics as ordered. 2. Monitor leukocytosis. Still slightly high 3. Pepcid for GI prophylaxis 4. Lovenox for DVT prophylaxis. 5. H&H stable. Within normal limits platelet count 6. Out of bed, encourage ambulation. 7. Electrolyte replacement as needed basis. 8. Breathing treatment on p.r.n. basis. 9. Low iron will replace 10. Discussed with patient. 11. Appreciate pulmonary and oncology input 12. Condition is improving. Labs for tomorrow Ирина Arthur MD Sep 11, 2016 11:14
--- NOTE | 2016-09-11 14:30 | PD.ONC.PN ---
Subjective Subjective Remarks Afebrile overnight. Pt sitting up in chair at bedside in no distress. She is c/ o altered taste and nothing tastes good to her. She states she occasionally gets SOB. No chest pain. Objective Data Date Time Temp Pulse Resp B/P Pulse Ox O2 Delivery O2 Flow Rate FiO2 09/11/16 12:00 97.2 82 20 92/52 93 09/11/16 09:15 95 Nasal Cannula 2.00 09/11/16 08:00 97.4 80 21 109/64 95 09/11/16 04:00 97.6 101 18 101/55 92 09/11/16 03:15 98 Nasal Cannula 2.00 09/11/16 00:00 98.3 111 16 98/62 92 09/10/16 21:50 97.3 102 16 105/56 93 09/10/16 20:00 98.9 74 20 110/62 91 09/10/16 20:00 74 09/10/16 16:00 71 09/10/16 16:00 98.7 71 18 98/54 95 09/11/16 09/11/16 09/11/16 07:00 15:00 23:00 Intake Total 200 ml Balance 200 ml Result Diagram: 09/11/16 0531 09/10/16 0416 Laboratory Results Laboratory Tests Test 09/11/16 05:31 White Blood Count 14.0 TH/MM3 Red Blood Count 3.08 MIL/MM3 Hemoglobin 9.3 GM/DL Hematocrit 26.7 % Mean Corpuscular Volume 86.7 FL Mean Corpuscular Hemoglobin 30.0 PG Mean Corpuscular Hemoglobin 34.6 % Concent Red Cell Distribution Width 14.0 % Platelet Count 280 TH/MM3 Mean Platelet Volume 8.9 FL Culture Results Microbiology Date/Time Procedure Status Source Growth 09/09/16 10:45 Legionella Antigen - Final Complete Urine Catheterized Urine PRESUMPTIVE NEGATIVE FOR LEGIONELLA P... 09/09/16 10:45 Streptococcus pneumoniae Antigen (M - Final Complete Urine Catheterized Urine PRESUMPTIVE NEGATIVE FOR STREPTOCOCCU... 09/09/16 15:30 Gram Stain - Final Complete Sputum Expectorated Sputum 09/09/16 15:30 Sputum Culture - Final Complete Sputum Expectorated Sputum HEAVY GROWTH NORMAL RESPIRATORY JUVENAL Administered Medications Medications (Trade) Dose Ordered Sig/Kaitlin Route PRN Reason Start Time Stop Time Status Last Admin Dose Admin IV Flush (NS Flush) 2 ml BID FLUSH 09/08/16 09:00 09/11/16 10:00 Famotidine (Pepcid) 10 mg BID PO 09/08/16 09:00 09/11/16 09:49 Pantoprazole Sodium 40 mg 40 mg DAILY IV 09/08/16 09:00 09/11/16 09:49 Piperacillin Sod/ Tazobactam Sod (Zosyn 3.375 Gm Premix) 50 ml @ 100 mls/hr Q6H IV 09/08/16 06:00 09/11/16 12:39 Diphenhydramine HCl (Benadryl) 50 mg HS PRN PO INSOMNIA 09/09/16 01:00 09/09/16 00:58 Acetaminophen (Tylenol) 650 mg Q4H PRN PO PAIN 1-10 AND/OR FEVER >101F 09/09/16 03:45 09/10/16 20:19 Enoxaparin Sodium 40 mg 40 mg Q24H SQ 09/09/16 06:00 09/11/16 06:13 Vancomycin HCl/ Sodium Chloride (Vancomycin Inj/ NS 250 ml Inj) 250 ml @ 250 mls/hr Q12H IV 09/09/16 08:00 09/11/16 10:02 Miscellaneous Information Patient in critical care unit? Ass... [id number] 09/10/16 06:15 09/10/16 06:15 Objective Remarks GENERAL: Middle aged female, sitting up in chair at bedside in no distress. SKIN: Warm and dry. HEAD: Normocephalic. EYES: No injection or drainage. NECK: Supple, trachea midline. CARDIOVASCULAR: +S1/S2. No murmur noted. RESPIRATORY: Lungs clear throughout. Breathing unlabored. GASTROINTESTINAL: Abdomen soft, non-tender, nondistended. EXTREMITIES: No edema. NEUROLOGICAL: Normal speech. Moving all extremities. A&Ox3. Assessment/Plan Problem List: (1) Thrombocytopenia Status: Acute Plan: 09/11: Platelet count is within normal limits x 2 days now. Likely related to resolving infection. --likely d/t sepsis/ DIC --+toxic granulation + Dohle bodies on peripheral smear --B12/folate WNL Assessment 61y/o female admitted with sepsis. Hematology consulted for thrombocytopenia. Attending Statement c/o weakness. Thrombocytopenia has resolved. Plat are NL x 2 days. still has anemia but no need tx. sign off available prn The exam, history, and the medical decision-making described in the above note were completed with the assistance of the mid-level provider. I reviewed and agree with the findings presented. I attest that I had a [id number] encounter with the patient on the same day, and personally performed and documented my assessment and findings in the medical record. Marii Franco Sep 11, 2016 14:30 Roz Calix MD Sep 11, 2016 15:04
--- NOTE | 2016-09-11 19:34 | HHI.PR ---
Subjective Remarks She is better. Less cough and wheezing. No fever Objective Vital Signs Date Time Temp Pulse Resp B/P Pulse Ox O2 Delivery O2 Flow Rate FiO2 09/11/16 16:00 98.3 75 20 92/57 97 09/11/16 12:00 97.2 82 20 92/52 93 09/11/16 09:15 95 Nasal Cannula 2.00 09/11/16 08:00 97.4 80 21 109/64 95 09/11/16 04:00 97.6 101 18 101/55 92 09/11/16 03:15 98 Nasal Cannula 2.00 09/11/16 00:00 98.3 111 16 98/62 92 09/10/16 21:50 97.3 102 16 105/56 93 09/10/16 20:00 98.9 74 20 110/62 91 09/10/16 20:00 74 I/O 09/10/16 09/10/16 09/10/16 09/11/16 09/11/16 09/11/16 07:00 15:00 23:00 07:00 15:00 23:00 Intake Total 177 ml 723 ml 240 ml 200 ml 720 ml Output Total 850 ml 800 ml 800 ml Balance -673 ml -77 ml -560 ml 200 ml 720 ml Intake Oral 60 ml 360 ml 240 ml 200 ml 720 ml IV Total 117 ml 363 ml Output Urine Total 850 ml 800 ml 800 ml # Voids 1 2 4 # Bowel Movements 0 0 Result Diagram: 09/11/16 0531 09/10/16 0416 Objective Remarks GENERAL: This is an averagely built middle-aged lady who is pale and slightly lethargic HEENT: Head normocephalic. Pupils are reactive. Sclerae clear. Tongue is dry. Throat clear. Nasal mucosa injected. NECK: Supple. No bruits or thyroid enlargement. CHEST: Equal movements with occasional crackles at the lung bases. No wheeze. CARDIAC: Heart sounds are regular S1-S2. No murmur. ABDOMEN: Soft without masses, no organomegaly or tenderness. EXTREMITIES: No edema or lesions. Reflexes are 1+ with no gross motor deficits. SKIN: No lesions are observed. Assessment and Plan Assessment and Plan IMPRESSION 1. Probable basilar pneumonia with hypoxemia. 2. Sepsis with shock. 3. Viral syndrome, resolving. 4. Thrombocytopenia. 5. Dehydration. Plan : 1. Cont Antibiotics. 2. Nebs qid , duoneb. 3. O2 at 2L. 4. Rpt CBC ,CXR. 5. Solumedrol 40 mg bid. 6. PFT in am. 7. Up with help. Tiffanie Prieto MD Sep 11, 2016 19:34
[2016-09-11] MEDS: methylPREDNISolone SOD SUCC 40 MG/1 ML VIAL IV SCH (20:22)
[2016-09-11] MEDS: ACETAMINOPHEN 325 MG TAB PO PRN (23:27)
[2016-09-12] VITALS (7 sets, daily range): BP systolic 91–109; BP diastolic 52–74; PULSE 62–97; RESP 16–18; TEMP 96.9–100; O2SAT 90–95
[2016-09-12] MEDS: RESP: ALBUTEROL 2.5 MG/IPRATROPIUM 0.5 MG NEB (SCH) INH (03:16)
[2016-09-12] MEDS: CHLORHEXIDINE GLUCONATE 2 % 1 PACK (2 CLOTHS)(taper/protocol) TOP SCH (03:25)
[2016-09-12] MEDS: methylPREDNISolone SOD SUCC 40 MG/1 ML VIAL IV SCH ×3 (03:29→19:50)
[2016-09-12] MEDS: PIPERACIL-TAZO 3.375 GM PREMIX 50 ML IV SCH ×3 (05:27→17:28)
[2016-09-12] MEDS: ENOXAPARIN SODIUM 40 MG/0.4 ML SYRINGE SQ SCH (05:28)
--- NOTE | 2016-09-12 08:18 | RADRPT ---
EXAM DATE/TIME: 09/12/2016 07:56 [place] COMPARISON: CT THORAX W/O CONTRAST, September 09, 2016, 7:58. CHEST SINGLE AP, September 10, 2016, 5:35. INDICATIONS : Short of Breath MEDICAL HISTORY : Gastroesophageal reflux disease. SURGICAL HISTORY : Left breast cyst removal ENCOUNTER: Subsequent ACUITY: 4 - 6 days PAIN SCORE: 0/10 LOCATION: Bilateral chest FINDINGS: There is by basilar airspace consolidation and pleural fluid which appears to be improved as compared to the prior exams. Heart size is moderately enlarged and there is diffuse cephalization of pulmonar y vasculature consistent with volume overload versus congestive heart failure. CONCLUSION: Overall improved exam as compared to priors. There is persistent bibasilar airspace consolidation and pleural fluid. Findings consistent with congestive heart failure and pulmonary edema versus volume overload. Kelley Jara MD on September 12, 2016 at 8:12 Board Certified Radiologist. This report was verified electronically.
[2016-09-12] MEDS: VANCOMYCIN INJ 1,000 MG in SODIUM CHLOR 0.9% 250 ML INJ 250 ML IV SCH ×2 (08:26→19:50)
[2016-09-12] MEDS: PANTOPRAZOLE SODIUM 40 MG VIAL IV SCH (08:26)
[2016-09-12] MEDS: SODIUM CHLORIDE 0.9% FLUSH 5 ML FLUSH FLUSH SCH ×2 (08:26→19:50)
[2016-09-12] MEDS: FAMOTIDINE 20 MG TAB PO SCH ×2 (08:27→19:50)
--- NOTE | 2016-09-12 10:29 | HHI.PR ---
Subjective Remarks Patient is feeling better When taking a deep breathing feels some discomfort in left lower chest No particular chest pain No cough No nausea vomiting no diarrhea No other complaint Less appetite Review of system for 10 point system otherwise unremarkable Objective Objective Results - Vital Signs Date Time Temp Pulse Resp B/P Pulse Ox O2 Delivery O2 Flow Rate FiO2 09/12/16 10:15 93 Nasal Cannula 2.00 09/12/16 08:00 96.9 62 16 106/66 92 09/12/16 04:00 97.5 91 18 94/56 95 09/12/16 00:00 100.0 97 17 109/64 94 09/11/16 22:05 95 Nasal Cannula 2.00 09/11/16 20:00 97.4 75 16 105/62 95 09/11/16 16:00 98.3 75 20 92/57 97 09/11/16 12:00 97.2 82 20 92/52 93 I/O 09/11/16 09/11/16 09/11/16 09/12/16 09/12/16 09/12/16 07:00 15:00 23:00 07:00 15:00 23:00 Intake Total 200 ml 720 ml 720 ml 720 ml Balance 200 ml 720 ml 720 ml 720 ml Intake Oral 200 ml 720 ml 720 ml 720 ml # Voids 2 4 4 3 # Bowel Movements 0 Result Diagram: 09/11/16 0531 09/10/16 0416 Other Results Date/Time Procedure Status Source Growth 09/09/16 15:30 Gram Stain - Final Complete Sputum Expectorated Sputum 09/09/16 15:30 Sputum Culture - Final Complete Sputum Expectorated Sputum HEAVY GROWTH NORMAL RESPIRATORY JUVENAL 09/09/16 10:45 Legionella Antigen - Final Complete Urine Catheterized Urine PRESUMPTIVE NEGATIVE FOR LEGIONELLA P... 09/09/16 10:45 Streptococcus pneumoniae Antigen (M - Final Complete Urine Catheterized Urine PRESUMPTIVE NEGATIVE FOR STREPTOCOCCU... 09/07/16 23:24 Aerobic Blood Culture - Preliminary Resulted Blood Peripheral NO GROWTH IN 4 DAYS 09/07/16 23:24 Anaerobic Blood Culture - Preliminary Resulted Blood Peripheral NO GROWTH IN 4 DAYS 09/07/16 20:56 Urine Culture - Final Complete Urine Catheterized Urine NO GROWTH IN 48 HOURS. 09/07/16 19:23 Influenza Types A,B Antigen (KIMBERLI) - Final Complete Nasal Aspirate NEGATIVE FOR FLU A AND B ANTIGEN.... Physical Exam Physical Exam The patient is alert and oriented, well-built, well-nourished lying on bed without any apparent distress. VITALS: Reviewed HEENT: Head is atraumatic, normocephalic. Eyes, negative for conjunctival congestion or icterus. Mouth unremarkable. NECK: Supple. No increased JVD. Central trachea. RESPIRATORY: Chest some decreased air entry bibasally. No rales, rhonchi or wheezing noted. CARDIOVASCULAR: S1 and S2 audible. Unable to hear an S3 gallop. GI: Abdomen soft, nontender, no organomegaly. Positive bowel sounds. MUSCULOSKELETAL: Extremities have no cyanosis or pedal edema appreciated. COMMISSARY OFFICER: Grossly intact. SKIN: Warm and dry. PSYCH: Appropriate mood and affect. The patient has a Ross catheter. A/P Assessment and Plan 1. Hypotension on admission improved now back to her baseline 2. Dehydration on admission better. Continue antibiotic and steroid. And breathing treatment 3. Pneumonia/airspace disease left lower lobe continue antibiotic 4. Status post intractable nausea and vomiting on admission. Resolved 5. Urinary tract infection, culture negative. Continue antibiotic 6. Electrolyte imbalance on admission. 7. Thrombocytopenia on admission. Improved 8. Leukocytosis will monitor 9. Anemia of hydration with stable H&H. RECOMMENDATIONS 1. Continue antibiotics as ordered. 2. Monitor leukocytosis. Still slightly high 3. Pepcid for GI prophylaxis 4. Lovenox for DVT prophylaxis. 5. H&H stable. Within normal limits platelet count 6. Out of bed, encourage ambulation. 7. Electrolyte replacement as needed basis. 8. Breathing treatment on p.r.n. basis. 9. Low iron will replace 10. Patient has low-grade fever will monitor. Advise and encourage incentive spirometry 11. Appreciate pulmonary and oncology input 12. Condition is improving. Labs for tomorrow Discussed with patient Discussed with Ирина Blackmon MD Sep 12, 2016 10:29
[2016-09-12] MEDS ORDERED: IRON SUCROSE 100 MG/5 ML VIAL IV PUSH ONE (11:00)
[2016-09-12] MEDS ORDERED: IRON SUCROSE INJ 200 MG in SODIUM CHLORIDE 0.9% INJ 100 ML IV ONE (11:15)
--- NOTE | 2016-09-12 23:35 | HHI.PR ---
Subjective Remarks Much improved. Less cough and wheezing. Taking her diet well. Objective Vital Signs Date Time Temp Pulse Resp B/P Pulse Ox O2 Delivery O2 Flow Rate FiO2 09/12/16 20:00 98.3 72 18 96/52 92 09/12/16 16:00 98.1 69 18 98/65 90 09/12/16 12:00 97.3 89 18 91/74 94 09/12/16 10:15 93 Nasal Cannula 2.00 09/12/16 08:00 96.9 62 16 106/66 92 09/12/16 04:00 97.5 91 18 94/56 95 09/12/16 00:00 100.0 97 17 109/64 94 I/O 09/11/16 09/11/16 09/11/16 09/12/16 09/12/16 09/12/16 07:00 15:00 23:00 07:00 15:00 23:00 Intake Total 200 ml 720 ml 720 ml 720 ml 1320 ml Balance 200 ml 720 ml 720 ml 720 ml 1320 ml Intake Oral 200 ml 720 ml 720 ml 720 ml 1320 ml # Voids 2 4 4 3 3 # Bowel Movements 0 1 Result Diagram: 09/11/16 0531 09/10/16 0416 Objective Remarks GENERAL: This is an averagely built middle-aged lady who is pale and slightly lethargic HEENT: Head normocephalic. Pupils are reactive. Sclerae clear. Tongue is dry. Throat clear. Nasal mucosa clear NECK: Supple. No bruits or thyroid enlargement. CHEST: Equal movements with occasional crackles at the lung bases. No wheeze. CARDIAC: Heart sounds are regular S1-S2. No murmur. ABDOMEN: Soft without masses, no organomegaly or tenderness. EXTREMITIES: No edema or lesions. Reflexes are 1+ with no gross motor deficits. SKIN: No lesions are observed. Assessment and Plan Assessment and Plan IMPRESSION 1. Basilar pneumonia with hypoxemia. 2. Sepsis with shock. 3. Viral syndrome, resolving. 4. Thrombocytopenia. 5. Dehydration. Plan : 1. Cont Antibiotics. 2. Nebs qid , duoneb. 3. O2 at 2L.and wean to RA 4. Rpt CBC ,BMP 5. Taper Solumedrol to 40 mg bid. 6. IS at Bedside q2h. 7. Up with help. Tiffanie Prieto MD Sep 12, 2016 23:35
[2016-09-13] VITALS: BP 108/61; PULSE 66; RESP 19; TEMP 97; O2SAT 92
[2016-09-13] MEDS: PIPERACIL-TAZO 3.375 GM PREMIX 50 ML IV SCH ×5 (00:23→23:56)
[2016-09-13 04:00] VITALS: BP 112/65; PULSE 67; RESP 18; TEMP 97.4; O2SAT 92
[2016-09-13] MEDS: CHLORHEXIDINE GLUCONATE 2 % 1 PACK (2 CLOTHS)(taper/protocol) TOP SCH (04:00)
[2016-09-13] MEDS: ENOXAPARIN SODIUM 40 MG/0.4 ML SYRINGE SQ SCH (05:13)
[2016-09-13 07:57] LABS: HEMATOCRIT 27.8 % (35.0-46.0); MEAN CELL VOLUME 88.4 FL (80.0-100.0); MEAN CORPUSCULAR HEMOGLOBIN 29.5 PG (27.0-34.0); MEAN CORPUSCULAR HGB CONC 33.4 % (32.0-36.0); PLATELET COUNT 424 TH/MM3 (150-450); RED BLOOD COUNT 3.15 MIL/MM3 (4.00-5.30); RED CELL DISTRIBUTION WIDTH 13.8 % (11.6-17.2); REVIEW FLAG FINAL; WHITE BLOOD COUNT 15.2 TH/MM3 (4.0-11.0)
[2016-09-13 08:08] LABS: BICARBONATE 26.6 MEQ/L (21.0-32.0); POTASSIUM 3.5 MEQ/L (3.5-5.1)
[2016-09-13] MEDS: VANCOMYCIN INJ 1,000 MG in SODIUM CHLOR 0.9% 250 ML INJ 250 ML IV SCH (08:53)
[2016-09-13] MEDS: SODIUM CHLORIDE 0.9% FLUSH 5 ML FLUSH FLUSH SCH ×2 (08:55→21:00)
[2016-09-13] MEDS: PANTOPRAZOLE SODIUM 40 MG VIAL IV SCH (08:56)
[2016-09-13] MEDS: FAMOTIDINE 20 MG TAB PO SCH ×2 (08:56→19:52)
[2016-09-13 09:00] VITALS: BP 111/55; PULSE 72; RESP 18; TEMP 97.3; O2SAT 93
[2016-09-13] MEDS ORDERED: methylPREDNISolone SOD SUCC 40 MG/1 ML VIAL IV SCH (09:00)
--- NOTE | 2016-09-13 10:26 | HHI.PR ---
Subjective Remarks Patient is feeling better Taking deep breathing without any discomfort No particular chest pain No cough No nausea vomiting no diarrhea No other complaint Less appetite Review of system for 10 point system otherwise unremarkable Objective Objective Results - Vital Signs Date Time Temp Pulse Resp B/P Pulse Ox O2 Delivery O2 Flow Rate FiO2 09/13/16 09:00 97.3 72 18 111/55 93 09/13/16 04:00 97.4 67 18 112/65 92 09/13/16 00:00 97.0 66 19 108/61 92 09/12/16 20:00 98.3 72 18 96/52 92 09/12/16 16:00 98.1 69 18 98/65 90 09/12/16 12:00 97.3 89 18 91/74 94 I/O 09/12/16 09/12/16 09/12/16 09/13/16 09/13/16 09/13/16 07:00 15:00 23:00 07:00 15:00 23:00 Intake Total 720 ml 1320 ml 720 ml 480 ml Balance 720 ml 1320 ml 720 ml 480 ml Intake Oral 720 ml 1320 ml 720 ml 480 ml # Voids 3 3 3 1 # Bowel Movements 1 1 Result Diagram: 09/13/16 0646 09/13/16 0646 Other Results Laboratory Tests Test 09/13/16 06:46 White Blood Count 15.2 Red Blood Count 3.15 Hemoglobin 9.3 Hematocrit 27.8 Mean Corpuscular Volume 88.4 Mean Corpuscular Hemoglobin 29.5 Mean Corpuscular Hemoglobin 33.4 Concent Red Cell Distribution Width 13.8 Platelet Count 424 Mean Platelet Volume 9.0 Sodium Level 140 Potassium Level 3.5 Chloride Level 105 Carbon Dioxide Level 26.6 Anion Gap 8 Blood Urea Nitrogen 11 Creatinine 0.63 Estimat Glomerular Filtration 96 Rate Random Glucose 128 Calcium Level 8.2 Date/Time Procedure Status Source Growth 09/09/16 15:30 Gram Stain - Final Complete Sputum Expectorated Sputum 09/09/16 15:30 Sputum Culture - Final Complete Sputum Expectorated Sputum HEAVY GROWTH NORMAL RESPIRATORY JUVENAL 09/09/16 10:45 Legionella Antigen - Final Complete Urine Catheterized Urine PRESUMPTIVE NEGATIVE FOR LEGIONELLA P... 09/09/16 10:45 Streptococcus pneumoniae Antigen (M - Final Complete Urine Catheterized Urine PRESUMPTIVE NEGATIVE FOR STREPTOCOCCU... Physical Exam Physical Exam The patient is alert and oriented, well-built, well-nourished lying on bed without any apparent distress. VITALS: Reviewed HEENT: Head is atraumatic, normocephalic. Eyes, negative for conjunctival congestion or icterus. Mouth unremarkable. NECK: Supple. No increased JVD. Central trachea. RESPIRATORY: Chest some decreased air entry bibasally. No rales, rhonchi or wheezing noted. CARDIOVASCULAR: S1 and S2 audible. Unable to hear an S3 gallop. GI: Abdomen soft, nontender, no organomegaly. Positive bowel sounds. MUSCULOSKELETAL: Extremities have no cyanosis or pedal edema appreciated. SLIP INJECTOR AND APPLICATOR: Grossly intact. SKIN: Warm and dry. PSYCH: Appropriate mood and affect. The patient has a Ross catheter. A/P Assessment and Plan 1. Hypotension on admission improved now back to her baseline 2. Dehydration on admission better. Continue antibiotic and steroid. And breathing treatment 3. Pneumonia/airspace disease left lower lobe continue antibiotic 4. Status post intractable nausea and vomiting on admission. Resolved 5. Urinary tract infection, culture negative. Continue antibiotic 6. Electrolyte imbalance on admission. 7. Thrombocytopenia on admission. Improved 8. Leukocytosis will monitor 9. Anemia of hydration with stable H&H. RECOMMENDATIONS 1. Culture shows gram-negative rods. Will DC vancomycin and continue Zosyn. Add Levaquin. 2. leukocytosis. Secondary to steroid 3. Pepcid for GI prophylaxis 4. Lovenox for DVT prophylaxis. 5. H&H stable. Within normal limits platelet count 6. Out of bed, encourage ambulation. 7. Electrolyte replacement as needed basis. 8. Breathing treatment on p.r.n. basis. 9. Low iron will replace 10. Low-grade fever resolved 11. Appreciate pulmonary and oncology input 12. Condition is improving. Labs reviewed Discussed with patient Discussed with Ирина Blackmon MD Sep 13, 2016 10:26
[2016-09-13] MEDS ORDERED: LEVOFLOXACIN 500 MG PREMIX INJ 100 ML IV SCH (11:00)
[2016-09-13 12:00] VITALS: BP 104/62; PULSE 84; RESP 18; TEMP 96; O2SAT 94; O2SAT 96
--- NOTE | 2016-09-13 14:03 | HHI.PR ---
Subjective Remarks Much improved. Less cough and wheezing. CXR is improved Objective Vital Signs Date Time Temp Pulse Resp B/P Pulse Ox O2 Delivery O2 Flow Rate FiO2 09/13/16 09:00 97.3 72 18 111/55 93 09/13/16 04:00 97.4 67 18 112/65 92 09/13/16 00:00 97.0 66 19 108/61 92 09/12/16 20:00 98.3 72 18 96/52 92 09/12/16 16:00 98.1 69 18 98/65 90 I/O 09/12/16 09/12/16 09/12/16 09/13/16 09/13/16 09/13/16 07:00 15:00 23:00 07:00 15:00 23:00 Intake Total 720 ml 1320 ml 720 ml 480 ml Balance 720 ml 1320 ml 720 ml 480 ml Intake Oral 720 ml 1320 ml 720 ml 480 ml # Voids 3 3 3 1 # Bowel Movements 1 1 Result Diagram: 09/13/16 0646 09/13/16 0646 Objective Remarks GENERAL: This is an averagely built middle-aged lady who is alert and in no distress HEENT: Head normocephalic. Pupils are reactive. Sclerae clear. Tongue is dry. Throat clear. Nasal mucosa clear NECK: Supple. No bruits or thyroid enlargement. CHEST: Equal movements with occasional wheeze. CARDIAC: Heart sounds are regular S1-S2. No murmur. ABDOMEN: Soft without masses, no organomegaly or tenderness. EXTREMITIES: No edema or lesions. Reflexes are 1+ with no gross motor deficits. SKIN: No lesions are observed. Assessment and Plan Assessment and Plan IMPRESSION 1. Basilar pneumonia resolving. 2. Sepsis with shock. 3. Viral syndrome, resolving. 4. Thrombocytopenia. 5. Dehydration. Plan : 1. Cont Antibiotics.D/C Vanco 2. D/C duoneb. 3. O2 at 2L.and wean to RA 4. Rpt CBC ,BMP 5. D/C Solumedrol. 6. IS at Bedside q2h. 7. Add ventolin HFA , 2 puffs tid prn Tiffanie Prieto MD Sep 13, 2016 14:03
[2016-09-13 16:00] VITALS: BP 118/68; PULSE 94; RESP 20; TEMP 96.4; O2SAT 97
[2016-09-13 20:00] VITALS: BP 100/63; PULSE 55; RESP 18; TEMP 97.6; O2SAT 95
[2016-09-14] VITALS: BP 107/63; PULSE 78; RESP 19; TEMP 97.7; O2SAT 94
[2016-09-14 04:00] VITALS: BP 103/71; PULSE 79; RESP 18; TEMP 97.7; O2SAT 95
[2016-09-14] MEDS: CHLORHEXIDINE GLUCONATE 2 % 1 PACK (2 CLOTHS)(taper/protocol) TOP SCH (04:00)
[2016-09-14] MEDS: ENOXAPARIN SODIUM 40 MG/0.4 ML SYRINGE SQ SCH (05:49)
[2016-09-14] MEDS: PIPERACIL-TAZO 3.375 GM PREMIX 50 ML IV SCH ×2 (05:49→12:34)
[2016-09-14 07:56] VITALS: O2SAT 95
[2016-09-14 08:00] VITALS: BP 112/76; PULSE 75; RESP 18; TEMP 97; O2SAT 99
[2016-09-14] MEDS: FAMOTIDINE 20 MG TAB PO SCH (08:56)
[2016-09-14] MEDS: SODIUM CHLORIDE 0.9% FLUSH 5 ML FLUSH FLUSH SCH (08:57)
[2016-09-14] MEDS ORDERED: LEVOFLOXACIN 500 MG TAB PO SCH (09:00)
--- NOTE | 2016-09-14 11:00 | HHI.PR ---
Subjective Remarks Patient is feeling good Taking deep breathing without any discomfort No particular chest pain No cough No nausea vomiting no diarrhea No other complaint Less appetite Review of system for 10 point system otherwise unremarkable Objective Objective Results - Vital Signs Date Time Temp Pulse Resp B/P Pulse Ox O2 Delivery O2 Flow Rate FiO2 09/14/16 08:00 97.0 75 18 112/76 99 09/14/16 07:56 95 Nasal Cannula 2.00 09/14/16 04:00 97.7 79 18 103/71 95 09/14/16 00:00 97.7 78 19 107/63 94 09/13/16 20:00 97.6 55 18 100/63 95 09/13/16 16:00 96.4 94 20 118/68 97 09/13/16 12:00 96.0 84 18 104/62 94 09/13/16 12:00 96 Nasal Cannula 2.00 I/O 09/13/16 09/13/16 09/13/16 09/14/16 09/14/16 09/14/16 07:00 15:00 23:00 07:00 15:00 23:00 Intake Total 480 ml 1080 ml 720 ml 310 ml 360 ml Balance 480 ml 1080 ml 720 ml 310 ml 360 ml Intake Oral 480 ml 1080 ml 720 ml 240 ml 360 ml IV Total 70 ml # Voids 1 6 5 2 1 # Bowel Movements 1 1 Result Diagram: 09/13/16 0646 09/13/16 0646 Other Results Date/Time Procedure Status Source Growth 09/09/16 15:30 Gram Stain - Final Complete Sputum Expectorated Sputum 09/09/16 15:30 Sputum Culture - Final Complete Sputum Expectorated Sputum HEAVY GROWTH NORMAL RESPIRATORY JUVENAL Physical Exam Physical Exam The patient is alert and oriented, well-built, well-nourished lying on bed without any apparent distress. VITALS: Reviewed HEENT: Head is atraumatic, normocephalic. Eyes, negative for conjunctival congestion or icterus. Mouth unremarkable. NECK: Supple. No increased JVD. Central trachea. RESPIRATORY: Chest some decreased air entry bibasally. No rales, rhonchi or wheezing noted. CARDIOVASCULAR: S1 and S2 audible. Unable to hear an S3 gallop. GI: Abdomen soft, nontender, no organomegaly. Positive bowel sounds. MUSCULOSKELETAL: Extremities have no cyanosis or pedal edema appreciated. RECREATIONAL [employer]NAGER: Grossly intact. SKIN: Warm and dry. PSYCH: Appropriate mood and affect. The patient has a Ross catheter. A/P Assessment and Plan 1. Hypotension on admission improved now back to her baseline 2. Dehydration on admission better. Continue antibiotic and steroid. And breathing treatment 3. Pneumonia/airspace disease left lower lobe continue antibiotic 4. Status post intractable nausea and vomiting on admission. Resolved 5. Urinary tract infection, culture negative. Continue antibiotic 6. Electrolyte imbalance on admission. 7. Thrombocytopenia on admission. Improved 8. Leukocytosis will monitor 9. Anemia of hydration with stable H&H. RECOMMENDATIONS 1. Culture shows gram-negative rods. Will DC vancomycin and continue Zosyn. Add Levaquin. 2. leukocytosis. Secondary to steroid 3. Pepcid for GI prophylaxis 4. Lovenox for DVT prophylaxis. 5. H&H stable. Within normal limits platelet count 6. Out of bed, patient is walking around 7. Culture report reviewed and explained to patient 8. Breathing treatment on p.r.n. basis. 9. Low iron replacement 10. Low-grade fever resolved 11. Appreciate pulmonary and oncology input 12. Condition is better On for discharge home today Discussed with patient Discussed with Ирина Blackmon MD Sep 14, 2016 11:00
[2016-09-14] MEDS ORDERED: LEVA500T PO (11:02)
--- NOTE | 2016-09-14 11:07 | HHI.DS ---
Discharge Summary Admission Date Sep 08, 2016 at 01:43 Admitting Diagnosis UTI Dehydration (1) Complicated urinary tract infection Diagnosis: Principal (2) Severe dehydration Diagnosis: Principal (3) Transient hypotension Diagnosis: Principal (4) Thrombocytopenia Diagnosis: Principal Brief History Patient came to the ER because of of body ache. Patient was in a Tamiflu although a flu test was negative. Patient was in the ER had a low blood pressure. She was dehydrated. Patient was admitted to the ICU. Hydration was given. Now blood pressure is a bit's line. Patient was started on antibiotic. Patient was improving slowly with during her stay patient has a blood culture positive for enough) fluency. Patient was kept on antibiotic. Patient is overall a stable and good condition plan to discharge her home by mouth antibiotic. For further details please see chart. Initially she has a severe hypokalemia which improved after treatment. Low platelet count likely secondary to sepsis now better CBC/BMP: 09/13/16 0646 09/13/16 0646 Significant Findings Laboratory Tests Test 09/13/16 06:46 White Blood Count 15.2 TH/MM3 (4.0-11.0) Red Blood Count 3.15 MIL/MM3 (4.00-5.30) Hemoglobin 9.3 GM/DL (11.6-15.3) Hematocrit 27.8 % (35.0-46.0) Random Glucose 128 MG/DL (74-106) Calcium Level 8.2 MG/DL (8.5-10.1) Pt Condition on Discharge: Good Discharge Disposition: Discharge Home Discharge Instructions DIET: Follow Instructions for: As Tolerated, No Restrictions Activities you can perform: Weight Bearing as Moon Follow up Referrals: PCP Follow-up - 1 Week New Medications: Levofloxacin (Levaquin) 500 Mg Tab 500 MG PO DAILY infection #7 TAB Ирина Arthur MD Sep 14, 2016 11:07
[2016-09-14 12:00] VITALS: BP 105/67; PULSE 64; RESP 18; TEMP 97.2; O2SAT 98
--- NOTE | 2016-09-14 12:41 | HHI.PR ---
Subjective Remarks Much improved.No cough or wheezing. CXR is improved Objective Vital Signs Date Time Temp Pulse Resp B/P Pulse Ox O2 Delivery O2 Flow Rate FiO2 09/14/16 08:00 97.0 75 18 112/76 99 09/14/16 07:56 95 Nasal Cannula 2.00 09/14/16 04:00 97.7 79 18 103/71 95 09/14/16 00:00 97.7 78 19 107/63 94 09/13/16 20:00 97.6 55 18 100/63 95 09/13/16 16:00 96.4 94 20 118/68 97 I/O 09/13/16 09/13/16 09/13/16 09/14/16 09/14/16 09/14/16 07:00 15:00 23:00 07:00 15:00 23:00 Intake Total 480 ml 1080 ml 720 ml 310 ml 360 ml Balance 480 ml 1080 ml 720 ml 310 ml 360 ml Intake Oral 480 ml 1080 ml 720 ml 240 ml 360 ml IV Total 70 ml # Voids 1 6 5 2 1 # Bowel Movements 1 1 Result Diagram: 09/13/16 0646 09/13/16 0646 Objective Remarks GENERAL: This is an averagely built middle-aged lady who is alert and in no distress HEENT: Head normocephalic. Pupils are reactive. Sclerae clear. Tongue is dry. Throat clear. Nasal mucosa clear NECK: Supple. No bruits or thyroid enlargement. CHEST: Equal movements with clear lungs CARDIAC: Heart sounds are regular S1-S2. No murmur. ABDOMEN: Soft without masses, no organomegaly or tenderness. EXTREMITIES: No edema or lesions. Reflexes are 1+ with no gross motor deficits. SKIN: No lesions are observed. Assessment and Plan Assessment and Plan IMPRESSION 1. Basilar pneumonia resolving. 2. Sepsis with shock. 3. Viral syndrome, resolving. 4. Thrombocytopenia. 5. Dehydration. Plan : 1. Cont Antibiotics. and switch to po Augmentin for 7 days 2. Home today 3. O2 at 2L.and wean to RA 4. Will see as OP in 2 weeks 5. D/C Solumedrol. 6. IS at Bedside q2h. 7. ventolin HFA , 2 puffs tid prn Tiffanie Prieto MD Sep 14, 2016 12:41
== END 2016-09-14 14:36 | disposition home or self-care (01) ==
LOC: PHED 18:35 → UNDOADMOB 23:33 → PHEDA 23:33 → INTOOBSV 23:33 → PHEDA 09-08 00:09 → OBSVTOIN 09-08 01:43 → INTOOBSV 09-08 01:43 → PHICU 09-08 03:20 → PHEDA 09-08 03:20 → HIMW 09-10 02:05 → PHICU 09-10 02:05 → HIMW 09-10 21:27 → HOCA 09-10 21:27 → UNDODISOB 09-14 14:36
PROVIDERS: ADMIT Specialist; ATTEND Specialist
DX: A41.9 Sepsis, unspecified organism (principal); J18.9 Pneumonia, unspecified organism; D65 Disseminated intravascular coagulation [defibrination syndrome]; R65.21 Severe sepsis with septic shock; E86.0 Dehydration; N39.0 Urinary tract infection, site not specified; E83.39 Other disorders of phosphorus metabolism; I10 Essential (primary) hypertension; N28.1 Cyst of kidney, acquired; E87.6 Hypokalemia; I25.10 Atherosclerotic heart disease of native coronary artery without angina pectoris; E78.5 Hyperlipidemia, unspecified; D64.9 Anemia, unspecified; R09.02 Hypoxemia
CPT/HCPCS: 36600; 71010; 71020; 71250; 74177; 76705; 80048; 80053; 81001; 82533; 82550; 82607; 82728; 82746; 82805; 83540; 83550; 83605; 83690; 83735; 83880; 84100; 84132; 84484; 85025; 85027; 85384; 85610; 85730; 86038; 86430; 87040; 87070; 87077; 87086; 87184; 87185; 87205; 87449; 87641; 87804; 93005; 93306; 94150; 94640; 94664; 96361; 96374; 99285; C9113; G0378; J0295; J1650; J1756; J1956; J2405; J2543; J2920; J3370; J3480; J7030; J7050; P9045; P9612; Q0163; Q9967